=== PATIENT | male | born 1950 | race Caucasian/White ===

== ENCOUNTER 2018-08-28 00:22 | Outpatient (CLI) | payer MEDICARE, OTHER, SELFPAY ==
--- NOTE | 2018-08-28 11:24 | DI.CTLCSR_ITS ---
SYMPTOM/DIAGNOSIS: SCREENING FOR LUNG CA, Z12.2, TOBACCO USE, F17.[address]: CT scan of the chest was performed according to the lung cancer screening protocol. Comparison examination is 08/22/17. There is atherosclerosis of the thoracic aorta but no aneurysmal dilatation. Heart size is within normal limits. No significant pericardial effusion is seen. Coronary artery calcifications are present. No significant mediastinal adenopathy is present. No pleural effusion or pneumothorax is identified. The 2 mm. non calcified pulmonary nodule in the anterior lateral aspect of the right upper lobe appears stable. No other pulmonary nodules are appreciated. There is scarring seen in the lung bases. No focal consolidating infiltrates are seen. The tracheobronchial tree is unremarkable. Mild centrilobular emphysematous changes are present in the lungs. The upper abdominal images are unremarkable. Degenerative changes are seen in the spine. IMPRESSION: Stable 2 mm. right upper lobe pulmonary nodule. No new pulmonary nodules. Category 1. Lung-RAD Category: Lung RADS Category 1- Negative
== END 2018-08-28 00:42 ==
PROVIDERS: PCP Nurse Practitioner Family; Visit Provider Nurse Practitioner Family
DX: Z12.2 Encounter for screening for malignant neoplasm of respiratory organs (principal); Z87.891 Personal history of nicotine dependence
CPT/HCPCS: G0297

== ENCOUNTER → 2019-01-27 15:00 | Outpatient (BNVA) | payer MEDICARE, OTHER, SELFPAY | PROVIDERS: PCP Nurse Practitioner Family; Referring Provider Nurse Practitioner Family; Visit Provider Surgery | DX: L98.9 Disorder of the skin and subcutaneous tissue, unspecified (principal); I10 Essential (primary) hypertension | CPT/HCPCS: 99212; 99213 ==

== ENCOUNTER → 2019-02-20 09:04 | Outpatient (BNVA) | payer MEDICARE, OTHER, SELFPAY | PROVIDERS: PCP Nurse Practitioner Family; Referring Provider Nurse Practitioner Family; Visit Provider Surgery | DX: L82.1 Other seborrheic keratosis (principal); I10 Essential (primary) hypertension; Z79.82 Long term (current) use of aspirin; Z85.828 Personal history of other malignant neoplasm of skin | CPT/HCPCS: 11402; 99212 ==

== ENCOUNTER 2019-02-20 11:12 | Outpatient (REF) | payer MEDICARE, OTHER, SELFPAY ==
--- NOTE | 2019-02-20 10:00 | SKI_PTH ---
PATIENT: Ayden Corrigan LOC: [facility] U#:[id number] AGE/SX: 68/M ROOM: RE02/20/[address]: Jayne Cruz : 1950 BED: DIS: 02/20/2019 SPEC #: [id number] RECD: 02/20/19 12:35 STATUS: SLY REQ #: [id number] KRUNAL: 02/20/19 10:[address]: Jayne Cruz DEPT: Surgical Specimen RECD BY: Lashell Mota ENTERED: 02/20/19 12:36 SP TYPE: [facility] DR: Diane Mckenzie APRN Tissues: 1 - SKIN BIOPSY(SHAVE/PUNCH) Procedures: SKIN LEVEL 4 Comments: [id number]
== END 2019-02-20 11:32 ==
LOC: LBN 11:12
PROVIDERS: PCP Nurse Practitioner Family; Visit Provider Surgery
DX: L82.1 Other seborrheic keratosis (principal)
CPT/HCPCS: 88304; 88305

== ENCOUNTER → 2019-03-03 14:33 | Outpatient (BNVA) | payer MEDICARE, OTHER, SELFPAY | PROVIDERS: PCP Nurse Practitioner Family; Referring Provider Nurse Practitioner Family; Visit Provider Surgery | DX: Z48.02 Encounter for removal of sutures (principal); Z48.817 Encounter for surgical aftercare following surgery on the skin and subcutaneous tissue; L57.0 Actinic keratosis ==

== ENCOUNTER 2019-05-16 02:02 | Outpatient (CLI) | payer MEDICARE, OTHER, SELFPAY ==
[2019-05-16 08:29] LABS: Hemoglobin A1C 5.8 % (4.5-6.2)
[2019-05-16 08:56] LABS: ALT 46 U/L (12-78); AST 18 U/L (15-37); Albumin 3.8 g/dL (3.4-5.0); Alkaline Phosphatase 73 U/L (46-116); Anion Gap 10.6 mmol/L (3-11); BUN 20 mg/dL (7-18); Bilirubin, Total 0.4 mg/dL (0.2-1.0); CO2 23.4 mmol/L (21.0-32.0); CREATININE 1.24 mg/dL (0.70-1.30); Calcium 9.3 mg/dL (8.5-10.1); Calculated LDL 94 mg/dL; Chloride 107 mmol/L (98-107); Cholesterol 167 mg/dL (50-200); Estimated GFR 57.47 (mL/min/1.73m2); Glucose 99 mg/dL (70-100); HDL Cholesterol 59 mg/dL (40-60); Potassium 4.9 mmol/L (3.5-5.1); Sodium 141 mmol/L (136-145); Total Protein 7.4 g/dL (6.4-8.2); Triglyceride 72 mg/dL (30-150)
== END 2019-05-16 02:22 ==
PROVIDERS: PCP Nurse Practitioner Family; Visit Provider Nurse Practitioner Family
DX: I10 Essential (primary) hypertension (principal); E78.5 Hyperlipidemia, unspecified; R73.01 Impaired fasting glucose
CPT/HCPCS: 36415; 80053; 80061; 83721; 83036

== ENCOUNTER 2019-08-29 00:07 | Outpatient (CLI) | payer MEDICARE, OTHER, SELFPAY ==
--- NOTE | 2019-08-29 08:35 | DI.CTLCSR_ITS ---
EXAM: CT CHEST LUNG CANCER SCREEN CLINICAL HISTORY: NICOTINE DEPENDENCE, CIGARETTES, F17.210; SCREENING, Z12.2. TECHNIQUE: The exam was performed according to the usual protocol. COMPARISON: CT CHEST LUNG CANCER SCREEN from 08/28/2018 FINDINGS: The low-dose chest CT is compared with a prior study of 08/28/2018. Again noted is a 2 mm noncalcifie d pulmonary nodule in the anterior lateral aspect of the right upper lobe which is unchanged. No new nodules are identified. Again noted are the chronic pulmonary changes with evidence of scarring inv olving the lung bases. There is no evidence of airspace consolidation. Heart is not enlarged. There are atherosclerotic changes involving the aorta with no evidence of an aneurysm. Coronary artery ca lcification is again seen. As visualized there is no evidence of hilar or mediastinal adenopathy. N o pleural effusion is seen. There are mild degenerative changes involving the dorsal spine. IMPRESSION: A 2 mm right upper lobe nodule is unchanged. No new nodules are apparent. This is a category 1 lung rads study. Follow-up surveillance with annual low-dose chest CT is recommended. Lung RADS Cat 1 - Negative: No nodules and definitely benign nodules.
== END 2019-08-29 00:27 ==
PROVIDERS: PCP Nurse Practitioner Family; Visit Provider Nurse Practitioner Family
DX: Z12.2 Encounter for screening for malignant neoplasm of respiratory organs (principal); F17.210 Nicotine dependence, cigarettes, uncomplicated; R91.1 Solitary pulmonary nodule; J98.4 Other disorders of lung
CPT/HCPCS: G0297

== ENCOUNTER 2021-02-24 01:24 | Outpatient (CLI) | payer MEDICARE, OTHER, SELFPAY ==
--- NOTE | 2021-02-24 08:25 | DI.CTLCSR_ITS ---
EXAM: CT CHEST LUNG CANCER SCREEN CLINICAL HISTORY: Screening for lung cancer,FORMER SMOKER, Z87.891 TECHNIQUE: Imaging Protocol: Axial computed tomography images with coronal and sagittal reformatted images were created and reviewed COMPARISON: CT CT CHEST LUNG CANCER SCREEN from 08/29/2019 FINDINGS: Tracheobronchial tree: Patent where visualized. Mediastinum and Frida: No dominant adenopathy or fluid collection. Pulmonary parenchyma: No consolidation or dominant measurable mass. Stable left lower lobe scarring. Lung Nodules: Stable tumor millimeter noncalcified nodule in the infero anterior peripheral right upp er lobe. No new nodules. Pleura: No effusion or pneumothorax. Heart: The heart is not dilated. Mild coronary artery calcifications are seen. Aorta: Thoracic aorta non-dilated.Mild atherosclerotic changes. Upper abdomen: Unremarkable. Bones: Mild degenerative changes. Soft Tissues: Unremarkable. IMPRESSION: Stable 2 millimeter right upper lobe nodule. Lung RADS Cat 1 - Negative: No nodules and definitely benign nodules Lung-RADS 1.0 CATEGORIES: Category 0 - Prior chest CT exam(s) being located for comparison. Category 1 - Annual screening in 12 months. No nodules or definitely benign nodules. Category 2 - Annual screening in 12 months. Benign appearance. Nodules with low likelihood of becomin g active cancer. Category 3 - 6-month follow-up. Probably benign. Short-term follow-up suggested. Nodules with low lik elihood of becoming active cancer. Category 4A - 3-month follow-up and CT/PET if >8 mm in size. Suspicious finding. Findings which requi re additional testing. Category 4B - Findings which require additional testing and tissue sampling. Modifier S- Potentially clinically significant findings (non lung cancer) RADIATION DOSE DELIVERED: 102.07mGy.cm Total DLP 2.21mGy CTDIvol DATA REPOSITORY: All CT scans at this facility are submitted to the National Radiology Data Registry (NRDR) Dose Index Registry (DIR) with the [employer] (ACR). RADIATION OPTIMIZATION: All CT scans at this facility use at least one of these dose optimization te chniques: automated exposure control; mA and/or kV adjustment per patient size (includes targeted exa ms where dose is matched to clinical indication); or iterative reconstruction.
== END 2021-02-24 01:44 ==
PROVIDERS: PCP Nurse Practitioner Family; Visit Provider Nurse Practitioner Family
DX: Z12.2 Encounter for screening for malignant neoplasm of respiratory organs (principal); Z87.891 Personal history of nicotine dependence; R91.1 Solitary pulmonary nodule
CPT/HCPCS: 71271

== ENCOUNTER 2021-07-19 03:38 | Outpatient (CLI) | payer MEDICARE, OTHER, SELFPAY ==
[2021-07-19 08:36] LABS: ALT 30 U/L (16-63); AST 16 U/L (15-37); Alkaline Phosphatase 62 U/L (46-116); Anion Gap 12.6 mmol/L (3-11); BUN 15 mg/dL (7-18); Bilirubin, Total 0.6 mg/dL (0.2-1.0); CO2 23.4 mmol/L (21.0-32.0); CREATININE 1.2 mg/dL (0.70-1.30); Calcium 8.9 mg/dL (8.5-10.1); Calculated LDL 85 mg/dL (<100); Chloride 107 mmol/L (98-107); Cholesterol 169 mg/dL (<200); Estimated GFR 59.35 (mL/min/1.73m2); Glucose 99 mg/dL (74-106); HDL Cholesterol 65 mg/dL (40-60); Potassium 4.4 mmol/L (3.5-5.1); Sodium 143 mmol/L (136-145); Triglyceride 97 mg/dL (<150)
== END 2021-07-19 03:39 | disposition home or self-care (01) ==
LOC: LBO 03:38
PROVIDERS: PCP Nurse Practitioner Family; Visit Provider Nurse Practitioner Family
DX: E78.5 Hyperlipidemia, unspecified (principal); I10 Essential (primary) hypertension
CPT/HCPCS: 36415; 80053; 80061

== ENCOUNTER 2021-10-12 14:41 | Outpatient (REF) | payer MEDICARE, OTHER, SELFPAY | END 2021-10-12 14:42 | disposition home or self-care (01) | LOC: LBO 14:41 | PROVIDERS: PCP Nurse Practitioner Family; Visit Provider Internal Medicine | DX: L02.232 Carbuncle of back [any part, except buttock and flank] (principal) | CPT/HCPCS: 87077; 87070; 87186; 87205 ==

== ENCOUNTER → 2021-10-27 12:48 | Outpatient (BNVA) | payer MEDICARE, OTHER, SELFPAY | PROVIDERS: PCP Nurse Practitioner Family; Referring Provider Nurse Practitioner Family; Visit Provider Physical Therapy Assistant | DX: L72.3 Sebaceous cyst (principal); I10 Essential (primary) hypertension | CPT/HCPCS: 10060; 10061; 99214 ==

== ENCOUNTER → 2021-11-07 09:07 | Outpatient (BNVA) | payer MEDICARE, OTHER, SELFPAY | PROVIDERS: PCP Nurse Practitioner Family; Referring Provider Nurse Practitioner Family; Visit Provider Physical Therapy Assistant | DX: Z48.817 Encounter for surgical aftercare following surgery on the skin and subcutaneous tissue (principal) ==

== ENCOUNTER → 2021-12-19 09:03 | Outpatient (BNVA) | payer MEDICARE, OTHER, SELFPAY | PROVIDERS: PCP Nurse Practitioner Family; Referring Provider Nurse Practitioner Family; Visit Provider Physical Therapy Assistant | DX: L72.3 Sebaceous cyst (principal); I10 Essential (primary) hypertension | CPT/HCPCS: 11401; 11402 ==

== ENCOUNTER → 2021-12-29 11:35 | Outpatient (BNVA) | payer MEDICARE, OTHER, SELFPAY | PROVIDERS: PCP Nurse Practitioner Family; Referring Provider Nurse Practitioner Family; Visit Provider Physical Therapy Assistant | DX: Z48.817 Encounter for surgical aftercare following surgery on the skin and subcutaneous tissue (principal) ==

== ENCOUNTER → 2022-01-05 07:52 | Outpatient (BNVA) | payer MEDICARE, OTHER, SELFPAY | PROVIDERS: PCP Nurse Practitioner Family; Referring Provider Nurse Practitioner Family; Visit Provider Physical Therapy Assistant | DX: Z48.817 Encounter for surgical aftercare following surgery on the skin and subcutaneous tissue (principal); L53.8 Other specified erythematous conditions | CPT/HCPCS: 99213 ==

== ENCOUNTER → 2022-01-12 10:05 | Outpatient (BNVA) | payer MEDICARE, OTHER, SELFPAY | PROVIDERS: PCP Nurse Practitioner Family; Referring Provider Nurse Practitioner Family; Visit Provider Surgery | DX: L72.3 Sebaceous cyst (principal); Z48.817 Encounter for surgical aftercare following surgery on the skin and subcutaneous tissue | CPT/HCPCS: 99212 ==

== ENCOUNTER → 2022-02-02 10:04 | Outpatient (BNVA) | payer MEDICARE, OTHER, SELFPAY | PROVIDERS: PCP Nurse Practitioner Family; Referring Provider Nurse Practitioner Family; Visit Provider Surgery | DX: L72.3 Sebaceous cyst (principal) | CPT/HCPCS: 99211 ==

== ENCOUNTER 2022-02-27 01:30 | Outpatient (CLI) | payer MEDICARE, OTHER, SELFPAY ==
--- NOTE | 2022-02-27 08:08 | DI.CTLCSR_ITS ---
Exam(s) CT CHEST LUNG CANCER SCREEN EXAM: CT CHEST LUNG CANCER SCREEN CLINICAL HISTORY: Screening for lung cancer,FORMER SMOKER, Z87.891 TECHNIQUE: Imaging Protocol: Axial computed tomography images with coronal and sagittal reformatted images were created and reviewed COMPARISON: CT CT CHEST LUNG CANCER SCREEN from 02/24/2021 FINDINGS: Tracheobronchial tree: Patent where visualized. Mediastinum and Frida: No dominant adenopathy or fluid collection. Pulmonary parenchyma: No consolidation or dominant measurable mass. Mild linear atelectasis or scarr ing at the lung bases. Lung Nodules: A stable 2 millimeter nodule anterior, peripheral right upper lobe. No new nodules. Pleura: No effusion or pneumothorax. Heart: The heart is not dilated. Mild coronary artery calcifications are seen. Aorta: Thoracic aorta non-dilated. Mild atherosclerotic changes Upper abdomen: Unremarkable. Bones: Unremarkable for age. Soft Tissues: Unremarkable. IMPRESSION: Lung RADS Cat 1 - Negative: No nodules and definitely benign nodules Lung-RADS 1.0 CATEGORIES: Category 0 - Prior chest CT exam(s) being located for comparison. Category 1 - Annual screening in 12 months. No nodules or definitely benign nodules. Category 2 - Annual screening in 12 months. Benign appearance. Nodules with low likelihood of becomin g active cancer. Category 3 - 6-month follow-up. Probably benign. Short-term follow-up suggested. Nodules with low lik elihood of becoming active cancer. Category 4A - 3-month follow-up and CT/PET if >8 mm in size. Suspicious finding. Findings which requi re additional testing. Category 4B - Findings which require additional testing and tissue sampling. Category 4X - Category 3 or 4 nodules with additional features or imaging findings that increases the suspicion of malignancy. Modifier S- Potentially clinically significant findings (non lung cancer) RADIATION DOSE DELIVERED: 102.98mGy.cm Total DLP 2.21mGy CTDIvol DATA REPOSITORY: All CT scans at this facility are submitted to the National Radiology Data Registry (NRDR) Dose Index Registry (DIR) with the [employer] (ACR). RADIATION OPTIMIZATION: All CT scans at this facility use at least one of these dose optimization te chniques: automated exposure control; mA and/or kV adjustment per patient size (includes targeted exa ms where dose is matched to clinical indication); or iterative reconstruction.
== END 2022-02-27 01:50 ==
PROVIDERS: PCP Nurse Practitioner Family; Visit Provider Nurse Practitioner Family
DX: Z12.2 Encounter for screening for malignant neoplasm of respiratory organs (principal); J98.4 Other disorders of lung; Z87.891 Personal history of nicotine dependence; R91.1 Solitary pulmonary nodule
CPT/HCPCS: 71271

== ENCOUNTER 2022-05-05 01:43 | Outpatient (CLI) | payer MEDICARE, OTHER, SELFPAY ==
[2022-05-05 09:27] LABS: TSH (W/Ref FT4) 2.01 uIU/mL (0.36-3.74); Vitamin B12 737 pg/mL (193-986)
== END 2022-05-05 01:44 | disposition home or self-care (01) ==
PROVIDERS: PCP Nurse Practitioner Family; Visit Provider Nurse Practitioner
DX: R68.89 Other general symptoms and signs; I10 Essential (primary) hypertension
CPT/HCPCS: 36415; 82607; 84443

== ENCOUNTER 2022-07-19 02:53 | Outpatient (CLI) | payer MEDICARE, OTHER, SELFPAY ==
[2022-07-19 09:28] LABS: Anion Gap 10.5 mmol/L (3-11); BUN 22 mg/dL (7-18); CO2 23.5 mmol/L (21.0-32.0); CREATININE 1.3 mg/dL (0.70-1.30); Calcium 8.8 mg/dL (8.5-10.1); Calculated LDL 86 mg/dL (<100); Chloride 108 mmol/L (98-107); Cholesterol 170 mg/dL (<200); Estimated GFR 57.65 (mL/min/1.73m2); Glucose 97 mg/dL (74-106); HDL Cholesterol 70 mg/dL (40-60); Potassium 4.2 mmol/L (3.5-5.1); Sodium 142 mmol/L (136-145); Triglyceride 70 mg/dL (<150)
== END 2022-07-19 02:54 | disposition home or self-care (01) ==
LOC: LBO 02:53
PROVIDERS: PCP Nurse Practitioner Family; Visit Provider Nurse Practitioner Family
DX: E78.5 Hyperlipidemia, unspecified (principal); I10 Essential (primary) hypertension
CPT/HCPCS: 36415; 80048; 80061

== ENCOUNTER 2023-03-22 01:15 | Outpatient (CLI) | payer MEDICARE, OTHER, SELFPAY ==
--- NOTE | 2023-03-22 07:24 | DI.CTLCSR_ITS ---
Exam(s) CT CHEST LUNG CANCER SCREEN EXAM: CT CHEST LUNG CANCER SCREEN CLINICAL HISTORY: Screening for lung cancer,FORMER SMOKER, Z87.891 TECHNIQUE: Imaging Protocol: Axial computed tomography images with coronal and sagittal reformatted images were created and reviewed COMPARISON: CT CT CHEST LUNG CANCER SCREEN from 02/27/2022 FINDINGS: Tracheobronchial tree: Patent where visualized. Pulmonary parenchyma: No consolidation or dominant measurable mass. There is linear atelectasis or sc arring in the lung bases. Lung Nodules: No new pulmonary nodules. There is a stable 2 mm nodule in the anterior aspect of the right upper lobe. Mediastinum and Frida: No dominant adenopathy or fluid collection. The esophagus is unremarkable. Thyroid gland: Unremarkable. Lymph nodes: Unremarkable. Pleura: No effusion or pneumothorax. Heart: The heart is not dilated. Mild coronary artery calcification. No pericardial effusion. Aorta: Thoracic aorta non-dilated.Atherosclerosis. Upper abdomen: Unremarkable. Soft Tissues: Unremarkable. Bones: Within normal limits. IMPRESSION: There is a stable 2 mm nodule. No new pulmonary nodules. Lung RADS Cat 2 - Benign Appearance / Behavior: Nodules with a very low likelihood of becoming a clin ically active cancer due to size or lack of growth Lung-RADS 1.0 CATEGORIES: Category 0 - Prior chest CT exam(s) being located for comparison. Category 1 - Annual screening in 12 months. No nodules or definitely benign nodules. Category 2 - Annual screening in 12 months. Benign appearance. Nodules with low likelihood of becomin g active cancer. Category 3 - 6-month follow-up. Probably benign. Short-term follow-up suggested. Nodules with low lik elihood of becoming active cancer. Category 4A - 3-month follow-up and CT/PET if >8 mm in size. Suspicious finding. Findings which requi re additional testing. Category 4B - Findings which require additional testing and tissue sampling. Suspicious finding. Category 4X - Category 3 or 4 nodules with additional features or imaging findings that increases the suspicion of malignancy. Modifier S- Potentially clinically significant finding. (Non lung cancer) RADIATION DOSE DELIVERED: 100.33mGy.cm Total DLP 100.33mGy.cmTotal DLP DATA REPOSITORY: All CT scans at this facility are submitted to the National Radiology Data Registry (NRDR) Dose Index Registry (DIR) with the [employer] (ACR). RADIATION OPTIMIZATION: All CT scans at this facility use at least one of these dose optimization te chniques: automated exposure control; mA and/or kV adjustment per patient size (includes targeted exa ms where dose is matched to clinical indication); or iterative reconstruction.
== END 2023-03-22 01:35 ==
LOC: DI 01:16
PROVIDERS: PCP Nurse Practitioner Family; Visit Provider Nurse Practitioner Family
DX: Z12.2 Encounter for screening for malignant neoplasm of respiratory organs (principal); Z87.891 Personal history of nicotine dependence
CPT/HCPCS: 36415; 71271; 80053; 80061; 85652; 83036; 84550; 85025; 86140

== ENCOUNTER 2023-03-22 12:42 | Outpatient (CLI) | payer MEDICARE, OTHER, SELFPAY ==
[2023-03-22 09:49] LABS: Abs Immature Grans 0.03 10^3/uL (0.0-0.06); Absolute Basophil Count 0.06 10^3/uL (0.0-0.2); Absolute Lymphocyte Count 1.74 10^3/uL (1.2-3.4); Absolute Monocyte Count 0.82 10^3/uL (0.1-0.8); Absolute Neutrophil Count 5.74 10^3/uL (1.2-6.7); Basophils % 0.7; Eosinophils % 3.5; HCT 49.1 % (40.0-50.0); HGB 16.7 g/dL (13.5-17.5); Immature Grans % 0.3; MCH 32.7 pg (27.0-33.0); MCV 96 fL (80-95); MPV 10.3 fL (8.0-11.0); Monocytes % 9.4; Neutrophils % 66.1; Platelet Count 239 10^3/uL (130-400); RBC 5.11 10^6/uL (4.36-5.78); RDW 12.9 % (11.8-14.1); RDW-SD 46.4 fL; WBC 8.69 10^3/uL (4.4-10.8)
[2023-03-22 09:54] LABS: ESR 11 mm/hr (0-20)
[2023-03-22 10:24] LABS: ALT 34 U/L (16-63); AST 17 U/L (15-37); Albumin 4.1 g/dL (3.4-5.0); Alkaline Phosphatase 83 U/L (46-116); Anion Gap 12.1 mmol/L (3-11); BUN 22 mg/dL (7-18); Bilirubin, Total 0.6 mg/dL (0.2-1.0); CO2 20.9 mmol/L (21.0-32.0); CREATININE 1.5 mg/dL (0.70-1.30); Calcium 9.2 mg/dL (8.5-10.1); Chloride 107 mmol/L (98-107); Estimated GFR 48.55 (mL/min/1.73m2); Glucose 108 mg/dL (74-106); Potassium 4.3 mmol/L (3.5-5.1); Sodium 140 mmol/L (136-145); Total Protein 7.9 g/dL (6.4-8.2); Uric Acid 7.7 mg/dL (3.5-7.2)
[2023-03-22 10:29] LABS: C-Reactive Protein < 0.05 mg/dL (0.0-0.3)
[2023-03-22 10:40] LABS: Calculated LDL 77 mg/dL (<100); Cholesterol 199 mg/dL (<200); HDL Cholesterol 77 mg/dL (40-60); Hemoglobin A1C 5.1 % (<5.7); Triglyceride 225 mg/dL (<150)
== END 2023-03-22 12:43 | disposition home or self-care (01) ==
LOC: LBO 12:42
PROVIDERS: PCP Nurse Practitioner Family; Visit Provider Nurse Practitioner Family
DX: N18.31 Chronic kidney disease, stage 3a; I10 Essential (primary) hypertension; R73.01 Impaired fasting glucose; M10.471 Other secondary gout, right ankle and foot; E78.41 Elevated Lipoprotein(a)
CPT/HCPCS: 36415; 80053; 80061; 85652; 83036; 84550; 85025; 86140

== ENCOUNTER → 2023-04-10 08:25 | Outpatient (BNVA) | payer MEDICARE, OTHER, SELFPAY | PROVIDERS: PCP Nurse Practitioner Family; Referring Provider Nurse Practitioner Family; Visit Provider Surgery | DX: L72.3 Sebaceous cyst (principal) | CPT/HCPCS: 11403; 99213 ==

== ENCOUNTER → 2023-04-19 15:02 | Outpatient (BNVA) | payer MEDICARE, OTHER, SELFPAY | PROVIDERS: PCP Nurse Practitioner Family; Referring Provider Nurse Practitioner Family; Visit Provider Physical Therapy Assistant | DX: Z48.817 Encounter for surgical aftercare following surgery on the skin and subcutaneous tissue (principal); L72.9 Follicular cyst of the skin and subcutaneous tissue, unspecified ==

== ENCOUNTER 2023-04-26 02:25 | Outpatient (CLI) | payer MEDICARE, OTHER, SELFPAY ==
--- NOTE | 2023-04-26 07:15 | DI.RAD_ITS ---
Exam(s) XR FOOT RT COMPLETE EXAM: XR FOOT RT COMPLETE CLINICAL HISTORY: Persist 2nd toe pain/swell/red ?gout vs. stress fx,m79.674,m79.89. TECHNIQUE: 2D digital imaging was performed of the right foot. Three images were obtained. AP, obl ique and lateral views were obtained. COMPARISON: No exams were available for comparison FINDINGS: BONES: No acute fracture is present. No bony destructive lesion is seen. The bones are normally mineral surveying technician alized. JOINTS: No dislocation present. No findings are present to suggest osteomyelitis or gout. There is n arrowing of the 2nd MTP joint. Mild hypertrophic changes are seen at the interphalangeal joints of t he 2nd toe. SOFT TISSUE: Normal. IMPRESSION: 1. No radiographic evidence to suggest gout, osteomyelitis. 2. No acute fracture or dislocation. 3. Degenerative changes of the foot. DATA REPOSITORY: RADIATION DOSE DELIVERED:
== END 2023-04-26 02:45 ==
LOC: DI 02:25
PROVIDERS: PCP Nurse Practitioner Family; Visit Provider Nurse Practitioner Family
DX: M79.674 Pain in right toe(s) (principal); M19.071 Primary osteoarthritis, right ankle and foot
CPT/HCPCS: 73630

== ENCOUNTER 2023-07-13 00:59 | Outpatient (CLI) | payer MEDICARE, OTHER, SELFPAY ==
[2023-07-13 07:27] LABS: Anion Gap 12.9 mmol/L (3-11); BUN 22 mg/dL (7-18); CO2 23.1 mmol/L (21.0-32.0); CREATININE 1.4 mg/dL (0.70-1.30); Calcium 9.3 mg/dL (8.5-10.1); Chloride 104 mmol/L (98-107); Estimated GFR 52.41 (mL/min/1.73m2); Glucose 96 mg/dL (74-106); Potassium 3.9 mmol/L (3.5-5.1); Sodium 140 mmol/L (136-145)
== END 2023-07-13 01:00 | disposition home or self-care (01) ==
LOC: LBO 01:00
PROVIDERS: PCP Nurse Practitioner Family; Visit Provider Nurse Practitioner Family
DX: N18.9 Chronic kidney disease, unspecified (principal); I10 Essential (primary) hypertension; E78.5 Hyperlipidemia, unspecified
CPT/HCPCS: 36415; 80048

== ENCOUNTER 2023-08-06 04:27 | Outpatient (CLI) | payer MEDICARE, OTHER, SELFPAY ==
[2023-08-06 07:36] LABS: Anion Gap 9.2 mmol/L (3-11); BUN 15 mg/dL (7-18); CO2 25.8 mmol/L (21.0-32.0); CREATININE 1.5 mg/dL (0.70-1.30); Calcium 9.6 mg/dL (8.5-10.1); Chloride 104 mmol/L (98-107); Estimated GFR 48.25 (mL/min/1.73m2); Glucose 88 mg/dL (74-106); Potassium 4.1 mmol/L (3.5-5.1); Sodium 139 mmol/L (136-145)
== END 2023-08-06 04:28 | disposition home or self-care (01) ==
LOC: LBO 04:27
PROVIDERS: Student in an Organized Health Care Education/Training Program; Absent Provider Nurse Practitioner Family; PCP Nurse Practitioner Family; Referring Provider Nurse Practitioner Family; Visit Provider Nurse Practitioner Family
DX: N18.9 Chronic kidney disease, unspecified (principal); E78.5 Hyperlipidemia, unspecified; R73.01 Impaired fasting glucose; I10 Essential (primary) hypertension
CPT/HCPCS: 36415; 80048; 83735

== ENCOUNTER → 2023-08-21 00:53 | Outpatient (CLI) | payer MEDICARE, OTHER, SELFPAY ==
--- NOTE | 2023-08-21 06:30 | DI.US_ITS ---
Exam(s) US RENAL EXAM: US RENAL CLINICAL HISTORY: ? stones or other path,chronic kidney disease,n18.9. TECHNIQUE: Carlson scale, color and spectral Doppler were used. COMPARISON: No exams were available for comparison FINDINGS: Renal size in cm: Right: 10.4 left: 10.6 Echogenicity: Normal Hydronephrosis: No Cyst or mass: 2.1 centimeter cyst upper pole right kidney. 1.3 centimeter cyst lower pole left kidne y. No follow-up recommended. Nephrolithiasis: No Bladder: Empty not well evaluated. IMPRESSION: No evidence of stones or hydronephrosis. Normal renal echogenicity and parenchymal thickness. DATA REPOSITORY:
== END ==
PROVIDERS: PCP Nurse Practitioner Family; Visit Provider Nurse Practitioner Family
DX: N18.9 Chronic kidney disease, unspecified (principal)
CPT/HCPCS: 76770

== ENCOUNTER 2023-08-22 03:19 | Outpatient (CLI) | payer MEDICARE, OTHER, SELFPAY ==
[2023-08-22 08:07] LABS: Anion Gap 7.6 mmol/L (3-11); BUN 22 mg/dL (7-18); CO2 24.4 mmol/L (21.0-32.0); CREATININE 1.3 mg/dL (0.70-1.30); Calcium 9.3 mg/dL (8.5-10.1); Chloride 108 mmol/L (98-107); Estimated GFR 57.29 (mL/min/1.73m2); Glucose 107 mg/dL (74-106); Potassium 4.5 mmol/L (3.5-5.1); Sodium 140 mmol/L (136-145)
[2023-08-22 08:29] LABS: Bilirubin Negative (Negative); Blood Negative (Negative); Clarity Clear (Clear); Glucose Negative (Negative); Ketones Negative (Negative); Leukocyte Esterase Small (Negative); Nitrite Negative (Negative); Specific Gravity 1.025 (1.005-1.025); Urobilinogen 0.2 mg/dL (Up to 0.2)
[2023-08-22 08:36] LABS: Bacteria Rare HPF (Negative); C & S Indicated? Yes; Casts Negative LPF (Negative); Crystals Negative HPF (Negative); Epithelial Cells Rare HPF (Negative); Mucus Negative (Negative); RBC 0-2 HPF (0-2)
== END 2023-08-22 03:20 | disposition home or self-care (01) ==
LOC: LBO 03:19
PROVIDERS: Absent Provider Nurse Practitioner Family; PCP Nurse Practitioner Family; Referring Provider Nurse Practitioner Family; Visit Provider Nurse Practitioner Family
DX: N18.9 Chronic kidney disease, unspecified (principal); M79.674 Pain in right toe(s); M79.89 Other specified soft tissue disorders
CPT/HCPCS: 36415; 80048; 81003; 81015; 87086

== ENCOUNTER 2024-06-05 10:27 | Outpatient (CLI) | payer MEDICARE, OTHER, SELFPAY ==
--- NOTE | 2024-06-05 10:15 | RT.EKG_ITS ---
APPROVED REPORT Exam: Resting ECG Reason for Exam: Irregular HR w/ sob on exersion Patient Location: O HR:80 bpm ECG Measurements Heart Rate 80 AXIS IN 122 P 50 QRSd 110 QRS -61 QT 378 T 62 QTc 436 Conclusion Sinus rhythm...normal P axis, V-rate 50- 99 Atrial premature beats Left anterior fascicular block...axis(240,-40), init forces inf
== END 2024-06-05 10:28 | disposition home or self-care (01) ==
LOC: DI.KIM 10:28
PROVIDERS: PCP Family Medicine; Visit Provider Student in an Organized Health Care Education/Training Program
DX: I49.9 Cardiac arrhythmia, unspecified (principal); I10 Essential (primary) hypertension; N18.31 Chronic kidney disease, stage 3a; M79.671 Pain in right foot
CPT/HCPCS: 93010

== ENCOUNTER → 2024-06-05 13:15 | Outpatient (CLI) | payer MEDICARE, OTHER, SELFPAY ==
--- NOTE | 2024-06-05 11:39 | DI.RAD_ITS ---
Exam(s) XR FOOT RT COMPLETE EXAM: XR FOOT RT COMPLETE CLINICAL HISTORY: focal pain just distal to rt ankle joint, M79.671,r/o bony path, outer foot. TECHNIQUE: 2D digital imaging was performed. COMPARISON: CR XR FOOT RT COMPLETE from 04/26/2023 FINDINGS: 3 views No evidence of acute fracture or diastasis of the Lisfranc joint. Some degenerative changes are note d at the 2nd metatarsophalangeal joint; less so at the 1st metatarsophalangeal joint. Tarsometatarsa l joints appear unremarkable. Bone density normal. No osseous lesions. No radiopaque foreign desi s. Small sesamoid bones noted subjacent to the 5th metatarsal head. IMPRESSION: No acute osseous findings in the foot. Other findings as above. DATA REPOSITORY: RADIATION DOSE DELIVERED:
--- NOTE | 2024-06-05 11:40 | DI.RAD_ITS ---
Exam(s) XR ANKLE RT COMPLETE EXAM: XR ANKLE RT COMPLETE CLINICAL HISTORY: focal pain just distal to rt ankle joint, M79.671,r/o bony path, outer foot. TECHNIQUE: 2D digital imaging was performed. COMPARISON: No exams were available for comparison FINDINGS: 3 views No evidence of fracture or widening the ankle mortise. Talar dome unremarkable. No osseous lesions. No tarsal coalition. IMPRESSION: No acute osseous findings. DATA REPOSITORY: RADIATION DOSE DELIVERED:
== END ==
PROVIDERS: PCP Family Medicine; Visit Provider Student in an Organized Health Care Education/Training Program
DX: M79.671 Pain in right foot (principal); M25.571 Pain in right ankle and joints of right foot; M19.071 Primary osteoarthritis, right ankle and foot
CPT/HCPCS: 36415; 80048; 73610; 73630; 85018

== ENCOUNTER 2024-06-05 13:17 | Outpatient (CLI) | payer MEDICARE, OTHER, SELFPAY ==
[2024-06-05 12:13] LABS: Anion Gap 10.5 mmol/L (3-11); BUN 16 mg/dL (7-18); CO2 22.5 mmol/L (21.0-32.0); CREATININE 1.3 mg/dL (0.70-1.30); Calcium 9.3 mg/dL (8.5-10.1); Chloride 107 mmol/L (98-107); Estimated GFR 56.93 (mL/min/1.73m2); Glucose 102 mg/dL (74-106); Potassium 4.4 mmol/L (3.5-5.1); Sodium 140 mmol/L (136-145)
== END 2024-06-05 13:18 | disposition home or self-care (01) ==
LOC: LBO 13:17
PROVIDERS: PCP Family Medicine; Visit Provider Student in an Organized Health Care Education/Training Program
DX: N18.9 Chronic kidney disease, unspecified (principal); Z91.89 Other specified personal risk factors, not elsewhere classified; I10 Essential (primary) hypertension; M79.671 Pain in right foot
CPT/HCPCS: 36415; 80048; 85018

== ENCOUNTER 2024-08-01 08:43 | Outpatient (CLI) | payer MEDICARE, OTHER, SELFPAY ==
[2024-08-01 07:50] LABS: ALT 29 U/L (16-63); AST 26 U/L (15-37); Creatine Kinase 159 U/L (39-308)
[2024-08-01 07:51] LABS: Calculated LDL 70 mg/dL (<100); Cholesterol 161 mg/dL (<200); HDL Cholesterol 79 mg/dL (40-60); Triglyceride 63 mg/dL (<150)
== END 2024-08-01 08:44 | disposition home or self-care (01) ==
LOC: LBO 08:44
PROVIDERS: PCP Nurse Practitioner Family; Visit Provider Nurse Practitioner Family
DX: E78.5 Hyperlipidemia, unspecified (principal)
CPT/HCPCS: 36415; 80061; 82550; 84450; 84460

== ENCOUNTER 2024-10-27 02:26 | Outpatient (CLI) | payer MEDICARE, OTHER, SELFPAY ==
[2024-10-27 08:13] LABS: Anion Gap 7.5 mmol/L (3-11); BUN 16 mg/dL (7-18); CO2 27.5 mmol/L (21.0-32.0); CREATININE 1.4 mg/dL (0.70-1.30); Calcium 9.4 mg/dL (8.5-10.1); Chloride 108 mmol/L (98-107); Estimated GFR 52.09 (mL/min/1.73m2); Glucose 98 mg/dL (74-106); Potassium 4.6 mmol/L (3.5-5.1); Sodium 143 mmol/L (136-145)
== END 2024-10-27 02:27 | disposition home or self-care (01) ==
LOC: LBO 02:26
PROVIDERS: PCP Nurse Practitioner Family; Visit Provider Nurse Practitioner Family
DX: Z87.448 Personal history of other diseases of urinary system (principal)
CPT/HCPCS: 36415; 80048

== ENCOUNTER 2024-11-13 00:11 | Outpatient (CLI) | payer MEDICARE, OTHER, SELFPAY ==
--- OUTSIDE RECORDS SUMMARY | 2024-11-13 00:13 | XMS_ITS | Encounter Summary ---
Author Organization [facility] Address [address] [facility] [address] [place] [address] Care Team Providers Care Case Reviewer Name Role Phone Diane Mckenzie APRN Primary Care Provider Encounter Details Date Type Department Care Team (Late st Contact Info) Description 12/08/2016 Telephone Dermatology at [facility] [address] [place] [address] Louis Posada MD Social History Tobacco Use Types Packs/Day Years Used Date Smoking Tobacco: Never Assessed Sex and Gender Information Value Date Recorded Sex Assigned at Not on file Gender Identity Not on file Sexual Orientation Not on file documented as of this encounter Miscellaneous Notes * Telephone Encounter - Mira Bartlett LPN - 12/08/2016 9:11 AM EST Spoke with patient about his biopsy results indicating a BCC on his forehead. Reviewed treatment options to include ED&C, excision or MOHS. He does not want to have MOHS and requests that we do an excision at this facility. He will be scheduled with Dr. Posada for the procedure. He is aware that it may require more than one excision, he verbalized understanding. Scheduling oil developer to call him and schedule appointment. documented in this encounter Plan of Treatment Not on file documented as of this encounter Visit Diagnoses Not on filedocumented in this encounter Care Teams Case Reviewer Relationship Specialty Start Date End Date Diane Mckenzie APRN PCP - General Family Medicine 12/06/16 documented as of this encounter
--- OUTSIDE RECORDS SUMMARY | 2024-11-13 00:13 | XMS_ITS | Encounter Summary ---
Author Organization [facility] Address [address] [place] [address] Care Team Providers Care Prototype Model Maker Name Role Phone Unknown, Provider Primary Care Provider Unava ilable Encounter Details Date Type Department Care Team (Late st Contact Info) Description 02/20/2019 Results Only [facility] [phone] Cristobal Aranda, DO [address] [place], [place] [id number] Social History Tobacco Use Types Packs/Day Years Used Date Smoking Tobacco: Never Assessed Sex and Gender Information Value Date Recorded Sex Assigned at Not on file Legal Sex Male 18:16 EDT Gender Identity Not on file Sexual Orientation Not on file documented as of this encounter Plan of Treatment Not on file documented as of this encounter Procedures Procedure Name Priority Date/Time Associated Diagnosis Comments SURGICAL PATHOLOGY Routine 02/20/2019 18 :20 EDT documented in this encounter Results * SURGICAL PATHOLOGY (02/20/2019 18:20 EDT) Pathology Report: SURGICAL PATHOLOGY REPORT Reports generated via electronic interface contain original data; however they are lacking the format of the original report. Caution should be taken when reading/interpret ing unformatted reports. Name: ? AYDEN CORRIGAN ? Accession #: ? [id number] ? : ? 1950 (Age: 68) ??M ? Collect Date: ? 02/20/2019 ? Location: ? [facility] ? Receive Date: ? 02/20/2019 ? Provider: CRISTOBAL ARANDA DO Copy to: [facility] ? Final Pathologic Diagnosis: SKIN OF FLANK, RIGHT, EXCISION: - Seborrheic keratosis. Document reviewed and electronically signed by: CRISTOBAL BURGESS MD Report ??Date: 02/24/2019 11:43 By the signature above, the attending physician certifies that he/she has personally conducted a gross and/or microscopic examination of the described specimens and rendered or confirmed the above diagnosis. Specimen(s) Received: 1.0 cm soft tissue lesion R flank Clinical History: Soft tissue lesion right flank with history of skin cancer; fax results to [phone] Gross Description: Received in formalin labelled with proper patient identification (initials V, G) and 1 cm soft tissue lesion, right flank is an unoriented elliptical excision of pale james-white skin (1.6 x 0.9 cm and is excised to a depth of 0.3 cm). There is a gutierrez-brown slightly lobular nodule that measures 0.9 x 0.8 cm x 0.2 cm in thickness. The margins are inked blue. The specimen is submitted entirely with the four central sections in 1 and 2 and the two tips in 3, reverse en face. THANIA Andrade (ASCP) 02/21/2019 7:54 AM End of Report [facility] 02/20/2019 18:2 0 EDT 02/20/2019 18:20 EDT us Cristobal Aranda DO PATHOLOGY ORDERABLES Final Re sult [facility] [address] [place] [address] documented in this encounter Visit Diagnoses Not on filedocumented in this encounter Care Teams Prototype Model Maker Relationship Specialty Start Date End Date Unknown, Provider, PCP - General 02/20/19 02/25/19 documented as of this encounter
--- OUTSIDE RECORDS SUMMARY | 2024-11-13 00:13 | XMS_ITS | Referral Summary ---
Author Organization [facility] Address [address] [place] [address] Care Team Providers Care Labor Custodian Name Role Phone Diane Mckenzie NP Primary Care Provider [phone] Social History Tobacco Use Types Packs/Day Years Used Date Smoking Tobacco: Never Assessed Interpersonal Safety Answer Date Record ed Physically Hurt Never 06/21/2020 Verbally Threaten Not on file 06/21/2020 Sex and Gender Information Value Date Recorded Sex Assigned at Not on file Legal Sex Male 18:16 EDT Gender Identity Not on file Sexual Orientation Not on file Plan of Treatment Not on file Care Teams Labor Custodian Relationship Specialty Start Date End Date Diane Mckenzie NP PCP - General 02/26/19
--- OUTSIDE RECORDS SUMMARY | 2024-11-13 00:13 | XMS_ITS | Encounter Summary ---
Author Organization [facility] Address [facility] [place] [address] Care Team Providers Care Filter Tank Tender Helper Head Name Role Phone Diane Mckenzie APRN Primary Care Provider [phone] Encounter Details Date Type Department Care Team (Late st Contact Info) Description 08/23/2021 8:30 AM EDT Office Visit Dermatology at [facility] [address] [place] [address] Alex Priest MD [facility] [address] [address] Neoplasm of uncertain behavior; AK (actinic keratosis); EIC (epidermal inclusion cyst); Dermatitis; Lichen simplex chronicus Social History Tobacco Use Types Packs/Day Years Used Date Smoking Tobacco: Never Assessed Sex and Gender Information Value Date Recorded Sex Assigned at Not on file Gender Identity Not on file Sexual Orientation Not on file documented as of this encounter Patient Instructions * Patient Instructions* Michelle Tobin - 08/23/2021 8:30 AM EDT Options for Anti-perspriant/deodorant: Vanicream Anti-perspirant/deodorant Almay Sensitive Skin fragrance free gel anti-perspirant/deodorant Certain Dri Prescription Strength Clinical Antiperspirant or Certain Dri Extra Strength. Apply thisto dry arm pits every 3 days at night If irritation with aluminum containing products consider: Vanicream Deodorant Crystal Mineral Deodorant Stick Gentle soap options: Vanicream Free & Clear brand or CeraVe brand moisturizers and soaps documented in this encounter Progress Notes * Alex Priest MD - 08/23/2021 8:30 AM EDT Images from the original note were not included. DEPARTMENT OF DERMATOLOGY Medical Dermatology Clinic Provider: Alex Priest MD Patient's preferred name Ayden Preferred contact method for results []?myDH []?Letter [x]?Phone: cell phone () DPOA on FILE Detailed phone message OK? yes Are there any other people with whom we may discuss your care? Alisa, ?? PAST MEDICAL HISTORY If no, type N. If yes, type date, location, treatment Melanoma no Dysplastic nevi no SCC no BCC 12/06/2016: BCC, nodular tyle, right medial forehead 07/14/2021: BCC nasal bridge, scheduled for Mohs 09/08/21 AKs no UV Exposure & Protection Does not wear sunscreen, does not stay in the sun Grew up in [place], worked outside Other relevant past medical history (i.e. eczema, psoriasis, birthmarks, immunosuppression) ?? FAMILY HISTORY If yes, details Melanoma no NMSC no Other relevant family history no SOCIAL HISTORY Occupation: Hobbies: Other: ?? PRE-PROCEDURE SCREENING If no, type N. If yes, include details below Allergy to lidocaine, epinephrine, Dermabond, chlorhexidine, or adhesives: no Bleeding disorder or blood thinners: no Pacemaker, defibrillator, deep brain stimulator, cochlear implant: no History of Present Illness: Ayden Corrigan is a 71 y.o. Patient returns to clinic today for a full skin exam, He has not noted any other new, growing, changing, bleeding, painful or otherwise symptomatic moles or other lesions. He has not noted any other changes in any preexisting lesions. Last visit at [facility] Derm: 07/14/2021 Last visit with this provider: 07/14/2021 Medications: Reviewed in eD-H Allergies: Reviewed in eD-H Skin Examination: Full skin examination: Patient asked to undress to their comfort level. Verbalized that the provider???s preference is that the patient remove all clothing and that the provider will not examine areas patient elects to keep covered. Patient elects to keep underwear on and have the following examined: scalp, hair, face, ears, neck, chest, axillae, abdomen, back, and upper and lower extremities. Genitalia and buttocks were not examined. Assessment/Plan #. DDx: Favor BCC- 0.8 cm pearly papule on the upper back Procedure: Shave Electrodesiccation and Curettage Pre- Size: 1 cm Site: upper back Post-curettage defect size: 1.2cm Discussed indications and expectations including risks and benefits. Verbal consent obtained. Skin prep. Local anesthesia: 1% lidocaine with epinephrine. The entire lesion plus a small margin was treated by curettage and electrodesiccation x3. No complications. Wound dressed. Expectations (including discomfort management) and wound care reviewed. #. Actinic Keratosis - Ill-defined gritty papule(s) on the scalp x4 - Explained etiology, natural history and premalignant potential of these lesions. - Patient opted to proceed with liquid nitrogen. - Patient should to return to clinic for re-evaluation if lesions do not resolve within 6 weeks of this treatment. Procedure: Destruction of lesion(s) with cryotherapy. Location(s): As noted above Number: 4 Discussed procedure and expectations including risks and benefits. Verbal consent obtained. Treatedwith LN2. There were no complications. Patient tolerated the procedure well. Post-procedure expectations and wound care were reviewed. #. Epidermal inclusion cyst (EIC) - 2 cm subcutaneous nodule with overlying punctum on the central back. 3 cm subcutaneous nodule with overlying punctum on the left flank. - Benign. No treatment needed. - History of enlarging and becoming bothersome. - Counseled: Etiology and treatment options. Answered all questions. #. Favor Contact Dermatitis of Axilla-Erythematous patches in the BL axilla with associated itch and/or stinging Plan: -Advised if pt shave arm pits to avoid shaving and use a felix as shaving can induce abrasions inthe skin and increase risk of irritant contact dermatitis -Use of a fragrance free underarm Deoderant 1st. If this persists can consider further patch testing if conservative therapy is not improve Options for Anti-perspriant/deodorant: Vanicream Anti-perspirant/deodorant Almay Sensitive Skin fragrance free gel anti-perspirant/deodorant Certain Dri Prescription Strength Clinical Antiperspirant or Certain Dri Extra Strength. Apply thisto dry arm pits every 3 days at night If irritation with aluminum containing products consider: Vanicream Deodorant Crystal Mineral Deodorant Stick Gentle soap options: Vanicream Free & Clear brand or CeraVe brand moisturizers and soaps #. Lichen simplex chronicus-hyperkeratotic plaque with overlying scale on the right knee Lichen simplex chronicus is the result of repetitive rubbing or picking at one area of skin. This rubbing and picking alters the sensory nerve endings in the skin which can itself generate pruritus, thus perpetuating the cycle. Treating LSC requires behavioral modification, for as long as the patient is rubbing or picking, the skin will not heal. - patent offered treatment, he declines at this time Other: ??? Sun protection discussed (protective clothing and SPF30+ broad-spectrum sunscreen) RTC: 1 year for FSE (Hx of BCC) []Note routed to secretary specialist [x]Recall placed in scheduling system []Appointment scheduled at checkout Scribe attestation: Avi Aguilar CMA and Michelle Tobin have performed the documentation for this encounter in the presence of and acting as a scribe for Alex Priest MD. I performed the above scribed service and agree with the accuracy of the documentation in this encounter. Reviewed and signed by: Alex Priest MD Dermatology [facility] * Alex Priest MD - 08/23/2021 8:30 AM EDT Biopsy results consistent with BCC that was treated with ED&C at recent visit. No further intervention required. Seen and reviewed by: Alex Priest MD [facility] Sheet Metal Work Furnace Installer Department of Dermatology documented in this encounter Plan of Treatment Not on file documented as of this encounter Procedures Procedure Name Priority Date/Time Associated Diagnosis Comments SPECIMEN TO PATHOLOGY Routine 08/23/2021 9:17 AM EDT Neoplasm of uncertain behavior SURGICAL PATHOLOGY REPORT Routine 08/23/2021 8:52 AM EDT documented in this encounter Results * Specimen to Pathology (08/23/2021 9:17 AM EDT) AP Specimen 08/23/2021 9:17 AM EDT 08/23/2021 9:17 AM EDT Narrative [facility] - 08/23/2021 9:17 AM EDT Specimen requisition ordered. ??Separate Pathology report to follow Alex Priest MD PATHOLOGY/CYTOLOGY Magalis MULLER [facility] [place] [address] * Surgical Pathology Report (08/23/2021 8:52 AM EDT) Final Diagnosis [id number] ? Location: [facility] The signing pathologist has (i) examined the relevant preparation(s) for the specimen(s) and (ii) rendered or confirmed the diagnosis(es). . ?Surgical Pathology DIAGNOSIS Upper back, skin shave biopsy ED&C: - ??Basal cell carcinoma, superficial and nodular types, ?? present at the specimen edges Electronically signed by: ?Eddie Villaseñor MD Verified: ??08/25/2021 14:44 ??Dermatopatholo gist Performed at: ??-[facility] Dept. of Pathology, [place], [place] SPECIMEN(S) SUBMITTED A - Upper back, skin shave ?? ED&C (1) CLINICAL INFORMATION 0.8 cm pearly papule on the upper back; DDX: Favor BCC SPECIMEN PROCESSING A - Labeled/Fixative : Upper back, formalin. Quantity/Size: ??Single, 0.8 x 0.6 x 0.1 cm. Tissue Description: Shave of james, glistening skin. Sections/Process ing: Inked, quadrisected and entirely submitted in 1 cassette labeled A1. ??flaco 08/25/2021 2:44 PM EDT [facility] SPECIMEN FROM SKIN / Unknown 08/23/2021 8:52 AM EDT 08/23/2021 8:52 AM EDT Alex Priest MD PATHOLOGY/CYTOLOGY O RDERABLES [facility] [place] [id number] documented in this encounter Visit Diagnoses Diagnosis Neoplasm of uncertain behavior Neoplasm of uncertain behavior, site unspecified AK (actinic keratosis) Actinic keratosis EIC (epidermal inclusion cyst) Sebaceous cyst Dermatitis Contact dermatitis and other eczema, due to unspecified cause Lichen simplex chronicus Lichenification and lichen simplex chronicus documented in this encounter Care Teams Filter Tank Tender Helper Head Relationship Specialty Start Date End Date Diane Mckenzie, REINSTATEMENT CLERK PCP - General Family Medicine 12/06/16 documented as of this encounter
--- OUTSIDE RECORDS SUMMARY | 2024-11-13 00:13 | XMS_ITS | Encounter Summary ---
Author Organization [facility] [place] [address] Care Team Providers Care Convention Worker Name Role Phone Diane Mckenzie APRN Primary Care Provider [phone] Reason for Visit * Reason Onset Date Comments Pre Procedure Call 12/19/2016 Encounter Details Date Type Department Care Team (Late st Contact Info) Description 12/19/[address] [place] [address] Lynette Potter LPN Pre Procedure Call Social History Tobacco Use Types Packs/Day Years Used Date Smoking Tobacco: Never Assessed Sex and Gender Information Value Date Recorded Sex Assigned at Not on file Gender Identity Not on file Sexual Orientation Not on file documented as of this encounter Miscellaneous Notes * Telephone Encounter - Lynette Potter LPN - 12/19/2016 3:50 PM EST Pre - OP Excision Phone Call Date of Call: 12/19/16 Unable to reach Ayden Corrigan by phone to discuss pre-op procedure instructions. Message left on answering machine. Lynette Potter LPN documented in this encounter Plan of Treatment Not on file documented as of this encounter Visit Diagnoses Not on filedocumented in this encounter Care Teams Convention Worker Relationship Specialty Start Date End Date Diane Mckenzie APRN PCP - General Family Medicine 12/06/16 documented as of this encounter
--- OUTSIDE RECORDS SUMMARY | 2024-11-13 00:13 | XMS_ITS | Encounter Summary ---
Author Organization [facility] Address [facility] [address] [place] [address] Care Team Providers Care Aircraft Cylinder Mechanic Name Role Phone JonahMitzygeronimo Cameron APRN Primary Care Provider [phone] Encounter Details Date Type Department Care Team (Latest Contact Info) Description 09/22/2021 2:00 PM EDT Clinical Support Dermatology at [facility] [address] [place] [address] Micah Peguero MD [facility] [address] [place] [address] Visit for wound check Social History Tobacco Use Types Packs/Day Years Used Date Smoking Tobacco: Never Assessed Sex and Gender Information Value Date Recorded Sex Assigned at Not on file Gender Identity Not on file Sexual Orientation Not on file documented as of this encounter Progress Notes * Micah Peguero MD - 09/22/2021 2:00 PM EDT Images from the original note were not included. Dermatologic Surgery Post-Operative Wound Check Patient: Ayden Corrigan Today's Date: 09/22/2021 Date of : 1950 Chief complaint: [x] Wound check [] Suture removal History of Present Illness: Ayden Corrigan is a 71 y.o. male presents today for status post Mohs micrographic surgery for basal cell carcinoma, nodular, with surgery date 09/08/2021, repaired by rotation flap, located on the bridge of nose. Today, the patient reports contentment with the scar. Patient denies post- operative course complications and had an uneventful post-op course. Examination: Focused examination performed of the surgical site. This reveals a well-healing flap with small area of granulating tissue at the distal portion. Assessment: 1. Normal healing post-surgical site without any signs/symptoms of infection. Small area at distal portion that is continuing to heal. Plan: 1. Instructed to apply Vaseline and bandage once daily x one week. Then continue Vaseline once daily for an additional week bandage optional. 2. Follow up as needed. Note initiated by MICHAEL Lindquist CMA has performed the documentation for this encounter in the presence of and acting as a scribe for Dr. Peguero I performed the above scribed service and agree with the accuracy of the documentation in this encounter. Reviewed and signed by: Micah Peguero Dermatology [facility] documented in this encounter Plan of Treatment Not on file documented as of this encounter Visit Diagnoses Diagnosis Visit for wound check Encounter for other specified aftercare documented in this encounter Care Teams Aircraft Cylinder Mechanic Relationship Specialty Start Date End Date Diane Mckenzie APRN PCP - General Family Medicine 12/06/16 documented as of this encounter
--- OUTSIDE RECORDS SUMMARY | 2024-11-13 00:13 | XMS_ITS | Encounter Summary ---
Author Organization [facility] [place] [address] Care Team Providers Care Plater Printed Circuit Board Panels Name Role Phone Diane Mckenzie APRN Primary Care Provider Reason for Visit * Reason Onset Date Comments Appointment 12/08/2016 Encounter Details Date Type Department Care Team (Late st Contact Info) Description 12/08/2016 Telephone Dermatology at [facility] [address] [place] [phone] Louis Posada MD Appointment Social History Tobacco Use Types Packs/Day Years Used Date Smoking Tobacco: Never Assessed Sex and Gender Information Value Date Recorded Sex Assigned at Not on file Gender Identity Not on file Sexual Orientation Not on file documented as of this encounter Miscellaneous Notes * Telephone Encounter - Mariah Parker - 12/08/2016 9:51 AM EST I left a voicemail for Ayden Corrigan requesting a call back to schedule an excision of a BCC on forehead with Dr. Posada. documented in this encounter Plan of Treatment Not on file documented as of this encounter Visit Diagnoses Not on filedocumented in this encounter Care Teams Plater Printed Circuit Board Panels Relationship Specialty Start Date End Date Diane Mckenzie APRN PCP - General Family Medicine 12/06/16 documented as of this encounter
--- OUTSIDE RECORDS SUMMARY | 2024-11-13 00:13 | XMS_ITS | Encounter Summary ---
Author Organization [facility] [place] [address] Care Team Providers Care Air Tucker Name Role Phone Diane Mckenzie APRN Primary Care Provider [phone] Reason for Referral * Consultation (Routine) - Closed Specialty Diagnoses / Procedures Referred By Justine barahona Referred To Contact Dermatology Diagnoses Disorder of skin and subcutaneous tissue Personal history of other malignant neoplasm of skin Diane Mckenzie APRN [address] [facility] [address] [place] [address] [facility] Dermatology [address] [place] [address] Referral ID Status Reason Start Date Expiration Date V isits Requested Visits Authorized [id number] Closed Consult, Test & Treat PCP Updated and/or Approved 03/26/2023 03/25/2024 6 6 Encounter Details Date Type Department Care Team (Latest Contact Info) Description 03/26/2023 Transcribe Orders eDH Incoming Referrals [phone] Diane Mckenzie APRN [address] [facility] [address] [place] [address] Disorder of skin and subcutaneous tissue; Personal history of other malignant neoplasm of skin Social History Tobacco Use Types Packs/Day Years Used Date Smoking Tobacco: Never Assessed Sex and Gender Information Value Date Recorded Sex Assigned at Not on file Gender Identity Not on file Sexual Orientation Not on file documented as of this encounter Plan of Treatment Scheduled Referrals Name Type Priority Associated Diagnoses Orde r Schedule Referral to Dermatology Outpatient Referral Routine Disorder of skin and subcutaneous tissue Personal history of other malignant neoplasm of skin Ordered: 03/26/2023 documented as of this encounter Visit Diagnoses Diagnosis Disorder of skin and subcutaneous tissue Unspecified disorder of skin and subcutaneous tissue Personal history of other malignant neoplasm of skin documented in this encounter Care Teams Air Tucker Relationship Specialty Start Date End Date Diane Mckenzie, SHIRT TRIMMER PCP - General Family Medicine 12/06/16 documented as of this encounter
--- OUTSIDE RECORDS SUMMARY | 2024-11-13 00:13 | XMS_ITS | Clinical Summary ---
Author Organization [facility] Address [address] [place] [address] Care Team Providers Care Bacon Skin Lifter Name Role Phone Diane Mckenzie NP Primary Care Provider [phone] Social History Tobacco Use Types Packs/Day Years Used Date Smoking Tobacco: Never Assessed Interpersonal Safety Answer Date Record ed Physically Hurt Never 06/21/2020 Verbally Threaten Not on file 06/21/2020 Sex and Gender Information Value Date Recorded Sex Assigned at Not on file Legal Sex Male 18:16 EDT Gender Identity Not on file Sexual Orientation Not on file Plan of Treatment Health Maintenance Due Date Last Done Comments Hepatitis C Screen 1950 Fall Risk Screening 2013 RSV Immunization ( o r 60+ Years) (1 - 1-dose 75+ series) 2023 COVID-19 Vaccine ( season) 2024 Care Teams Bacon Skin Lifter Relationship Specialty Start Date End Date Diane Mckenzie NP PCP - General 02/26/19
--- OUTSIDE RECORDS SUMMARY | 2024-11-13 00:13 | XMS_ITS | Encounter Summary ---
Author Organization [facility] Address [facility] [address] [place] [address] Care Team Providers Care Continuity Editor Name Role Phone Diane Mckenzie APRN Primary Care Provider [phone] Encounter Details Date Type Department Care Team (Latest Contact Info) Description 09/08/2021 8:15 AM EDT Clinical Support Dermatology at [facility] [address] [place] [address] Micah Peguero MD [facility] [address] [place] [address] Basal cell carcinoma of dorsum of nose Social History Tobacco Use Types Packs/Day Years Used Date Smoking Tobacco: Never Assessed Sex and Gender Information Value Date Recorded Sex Assigned at Not on file Gender Identity Not on file Sexual Orientation Not on file documented as of this encounter Last Filed Vital Signs Vital Sign Reading Time Taken Comments Blood Pressure 138/90 09/08/2021 8:15 AM EDT Pulse 79 09/08/2021 8:15 AM EDT Temperature - - Respiratory Rate - - Oxygen Saturation - - Inhaled Oxygen Concentration - - Weight - - Height - - Body Mass Index - - documented in this encounter Progress Notes * Amelia Chaney LPN - 09/08/2021 8:15 AM EDT Mohs consultation and preoperative note (H&P) Patient Name: Ayden Corrigan Age: 71 y.o. Date of : 1950 Today's Date: 09/08/2021 REFERRING PROVIDER: Alex Priest MD CC: Mohs micrographic surgery for treatment of a cutaneous tumor HPI: Ayden Corrigan is a 71 y.o. male presenting for biopsy-proven Basal Cell Carcinoma,nodular location on the Bridge of Nose The dermatologic preoperative information sheet was reviewed with pertinentpositive and negative as below. DERMATOLOGIC PRE-OPERATIVE EVALUATION AND REVIEW OF SYSTEMS Had his Vaccine History of Mohs surgery-No Pacemaker/Defibrillator-No Joint replacement or other implantable devices (e.g. Cochlear implant)-No Do you take a blood thinner-No History of organ transplant-No History of artificial valve or stroke-No History of liver disease or bleeding disorder-No Do you have any medical problems that may affect your upcoming surgery-No Do you have any concerns regarding your upcoming surgery-No We ask patients to discontinue Fish oil/Multivitamin/Vit E/?? supplements and natural medicines not prescribed by a physician 1 week prior to surgery. SOCIAL HISTORY: Makes Own Decisions Yes Hearing aid or other devices: No Relevant travel history or future plans: Tobacco use (amount per day, type of tobacco.):No Do you have any physical limitations that may affect your surgery-No PAST MEDICAL HISTORY Past medical history reviewed PAST SURGICAL HISTORY Past surgical history reviewed ALLERGIES: Allergies reviewed MEDICATIONS: Medications reviewed documented in this encounter Plan of Treatment Not on file documented as of this encounter Visit Diagnoses Diagnosis Basal cell carcinoma of dorsum of nose Basal cell carcinoma of skin of other and unspecified parts of face documented in this encounter Care Teams Continuity Editor Relationship Specialty Start Date End Date Diane Mckenzie APRN PCP - General Family Medicine 12/06/16 documented as of this encounter
--- OUTSIDE RECORDS SUMMARY | 2024-11-13 00:13 | XMS_ITS | Encounter Summary ---
Author Organization [facility] Address [facility] [place] [address] Care Team Providers Care Hat And Cap Parts Cutter Hand Name Role Phone Diane Mckenzie APRN Primary Care Provider [phone] Reason for Visit * Consultation (Routine) - Closed Specialty Diagnoses / Procedures Referred By Justine barahona Referred To Contact Dermatology Diagnoses Basal cell carcinoma of nose Alex Priest MD [facility] [address] [address] Micah Peguero MD [facility] [address] [place] [address] Referral ID Status Reason Start Date Expiration Date V isits Requested Visits Authorized [id number] Closed Consult, Test & Treat 07/21/2021 07/21/2022 1 1 Encounter Details Date Type Department Care Team (Latest Contact Info) Description 09/08/2021 8:30 AM EDT Procedure visit Dermatology at [facility] [address] [place] [address] Micah Peguero MD [facility] [address] [place] [address] Neoplasm of uncertain behavior of skin; Nodular basal cell carcinoma Social History Tobacco Use Types Packs/Day Years Used Date Smoking Tobacco: Never Assessed Sex and Gender Information Value Date Recorded Sex Assigned at Not on file Gender Identity Not on file Sexual Orientation Not on file documented as of this encounter Last Filed Vital Signs Vital Sign Reading Time Taken Comments Blood Pressure 138/90 09/08/2021 8:40 AM EDT Pulse 79 09/08/2021 8:40 AM EDT Temperature - - Respiratory Rate - - Oxygen Saturation - - Inhaled Oxygen Concentration - - Weight - - Height - - Body Mass Index - - documented in this encounter Patient Instructions * Patient Instructions* Amelia Evangelista LPN - 09/08/2021 8:30 AM EDT Your staff surgeon today was Micah Peguero MD,PhD. Your wound(s) was repaired by [id number] stitches called a primary repair. You do not need to come back for suture removal because only absorbable sutures were used today. If the absorbable sutures bother your skin or do not absorb after 2 weeks, you may call us to remove them for you. Instructions are as below. Please keep this as a reference: Wound Care For wounds closed with absorbable-only stitches: ??? Gently remove your initial bandage (after 48 hours from surgery) and begin wound care as below. ??? If your initial bandage only lasts 24 hours (for example, falls off sooner), this is okay. Resume your wound care and bandaging instructions as below. ??? Change your bandage once a day (and whenever it becomes wet or soaks through). DO WOUND CARE FOR ONE WEEK. ??? For bandage changes: o Wash hands with soap and water, or use gloves that you can purchase a local pharmacy or drug store. o Clean the surgical area with cotton-tipped swabs or gauze dipped in soapy water (recommend liquidsoap in clean room temperature water). Do not scrub the area or put direct shower water pressure onto your wound. It is okay to allow soapy water to run over your wound in the shower. o If you cannot remove crusted areas, you may soak with wet gauze first for 15 to 20 minutes to help soften it. o Pat the area dry with clean gauze or cotton swabs. Do not rub. o Use a cotton swab to apply a generous layer of petroleum jelly over the incision lines and any open-wound areas. o Cover with clean nonstick gauze or other nonstick dressing, such as Telfa. This may be purchased over the counter at a drug store. Secure with paper tape or bandage. Band-aids are okay, but typically have more adhesive that can irritate the skin compared to paper tape. o Discontinue wound care after 7 days. If any portion of the incision was left open to heal on its own, continue to apply Vaseline daily until healed. o Allow the absorbable stitches to heal. If the top stitches that are absorbable are irritating your skin, you may call us to have them removed. Otherwise, they will be absorbed naturally in approximately 2 weeks. It may absorb as quickly as 4 days. o Keep in mind that if you do not want to use a bandage at all due to difficulty, allergies, irritation of skin, cost, time, or inconvenience --- you can certainly avoid bandages altogether. However,it is imperative that you continue with topical petrolatum ointment or Aquaphor (plain, fragrance-free). This may need to be applied several times daily if it gets wiped off, washed off, or dries out. Things to purchase for wound care: -Nonstick gauze -A tube or tub of petrolatum jelly (fragrance-free, no dye, not lotion) -paper tape -cotton swabs -gloves (optional) -Dial or other antibacterial liquid soap After Surgery 1. If you are a tobacco user please attempt to decrease the amount of tobacco products used following surgery for 1-2 weeks. 2. Limit alcohol intake to one drink per day for the next 3 days. 3. Do not participate in athletic activities for 5-7 days, unless you were told a different timeline during your visit. Athletic activity is a relative term, but this is considered to be anything that could potentially raise your heartrate or blood pressure. Elevating your heart rate and blood pressure increases the risk of swelling, bleeding, wound opening, and it could lead to worse scarring. Walking at a leisurely pace is fine for most people, but not if you are walking for the purpose of exercise. When in doubt, take it easy or call us. 4. Do not lift anything heavier than 10 pounds for 5-7 days postoperatively. 5. Some shuttle truck driver may need to be delayed or delegated such as vacuuming, mowing the lawn, snow shoveling, or caring for young children that need to be carried/lifted. Working any major muscle groups increases your heart rate and can increasing bleeding. 6. Avoid swimming, hot tubs, and direct water pressure for 3 weeks after surgery. You may shower, however, once your initial bandage comes off in 48 hours. 7. Avoid antibiotic ointments such as triple antibiotic creams. Stick with your wound care instructions, please. 8. Whenever possible, it is helpful to take photographs with your camera or cell phone of any problems or concerns you see with your wound. We often ask for photos when you call with questions. 9. Starting 2 months following surgery, you can begin firm massage to any areas of firm scar along your incision to soften the scar and reduce bumpiness. Do this 3 times per day, 3 minutes each time.Do not start massage before 2 months. 10. Your wound will appear almost completely healed soon after sutures are removed (about 1 week), but incisions can remain bright red for several weeks. Then the scarring and healing process continues under the skin for 6 months until to 2 years. The scar may become less red, less firm, and more subtle during this time; please note that the rate of improvement varies depending on the person. Most redness, discoloration, bumpiness resolves by 6 months, and most patients will look presentable within a few weeks after surgery. 11. Keep your follow-up appointments and make sure to continue to have your skin checked, as often as is recommended by your quartz orientator, for new skin cancers. This is once per year for most patients. 12. Your can expect your scar to be red for several weeks with gradual fading of the redness. Your scar will also be raised and lumpy until the dissolvable sutures under the skin get absorbed by yourbody which can take 3-4 months. The scar will flatten eventually. a. If you have a skin condition called rosacea, the redness can last long-term, or you can get an increased appearance of red vessels to the skin. The appearance of vessels slightly improves, but tends to respond well to laser treatments. 13. Occasionally, about 20% of the time on the face, the stitches under the skin can spit out of the incision to the surface. It can start out looking like a pimple or blemish directly on your incision. Sometimes you can feel something poking through the incision. it can look also minic a small area of infection, so please let us know before you go to another provider for antibiotics. This means that the suture may need to be trimmed or removed when you return for your wound check. This typically occurs a few weeks after surgery if it does occur. 14. To optimize your scar, and best cosmetic result, please avoid direct sunlight to your incision for the first 6 months following surgery. UV ray exposure to your incision may cause the redness to last longer, or to cause permanent darkening of your scar. You can avoid sun by covering your incision with a bandage when outdoors, wearing broad-rimmed hats, and wearing SPF 30 to 50 sunscreen (broad spectrum). 15. Any time you have skin surgery or any type of surgery, you can experience mild sensation loss (numbness) in the area of surgery. Massage starting at 8 weeks after surgery can help. 16. Swelling and bruising is common, and expected, especially if your surgery site was on the forehead, cheeks, temples, nose, or eyelids. . Sometimes it can be quite profound, where the eyelids swell shut, or getting black eyes. This is especially true if you are on blood thinners such as aspirin. Swelling and bruising will peak at about 48 hours after surgery. Bruising and swelling will gradually resolve. You can use ice packs or a bag of frozen peas for 15-20 minutes, 20 minutes off, up to3-4 times daily to areas of swelling on the face. Use caution not to put the icy item directly ontoyour incision, or directly in contact with your skin as this can damage skin. Avoid prolonged use more than 20 minutes. The best way to use ice packs is over the bandage, or using a light cloth/papertowel barrier between the ice pack and your skin. You can ice for as many days as needed until swelling has resolved. Eyelid and lip swelling is typically the last type of swelling to resolve. Antibiotics: If you were given antibiotic prescription, it is important to start them the evening of your surgery date. However, most patients do not need antibiotics after surgery. For pain: Most patients of different ages do not require pain medications. If you do feel soreness, throbbingor sharp pains, start by taking over the counter extra strength acetaminophen (up to 3000 mg in a 24 hour period). Generally, we like you to avoid NSAIDS (non-steroid anti-inflammatory drugs such as ibuprofen) for the first 48 hours after surgery as this can increase risk of bleeding. However, if acetaminophen is not helping with pain, you can alternate acetaminophen with iburpofen or other NSAID. Ice packs over your bandage without getting your bandage wet can also help with pain and swelling.Frozen peas work well as ice packs. THIS IS AN EXAMPLE OF A PAIN TREATMENT SCHEDULE: 1) You can take 500 mg acetaminophen one tablet by mouth at 6:00pm. This is over the counter. 2) You can take 400 mg of ibuprofen two hours later, at 8:00 pm, or other NSAID such as naproxen, as long as it does not interact with your other medications and your other doctors have not told you to avoid this. This is over the counter. Check to see how many milligrams (mg) each of your ibuprofen tablets are. Most of the time, ibuprofen comes in 200 mg tablets, so 400 mg would mean taking two of these tablets or capsules. 3) You can take 500 mg of acetaminophen at 10:00 pm. Keep track of your total acetaminophen in a 24hour period as your maximum should be 3000 mg total in a 24 hour period of this medication. 4) At midnight, you can take another 400 mg of ibuprofen. 5) you can continue on this schedule over the next 2 days, making sure to keep tabs of your total acetaminophen. If you are still in pain after trying the above, please call us. When to call your surgeon: ??? Fever of 100.4 degrees Fahrenheit or higher ??? Bleeding not controlled with direct firm pressure to your wound. Bleeding is most common in thefirst 48 hours. ??? Pain that is worsening and not relieved by over the counter medications such as acetaminophen (up to 3000 mg in a 24 hour period) ??? Wound reopening after stitching ??? Pus or bad odor from your wound ??? Worsening redness and warmth around your wound ??? If you think your surgery site is infected, please call us before seeking care or antibiotics from other providers ??? Please call us before seeking care in an emergency room or primary care. ??? If you do call, please leave your full name, phone number, date of , date of surgery, and medical record number if you have it. If after hours, please call the trench shovel operator or [phone] and ask for the quartz orientator on-call. If you have any non-urgent questions or concerns, please feel free to call my office or contact me through our patient portal, [email or web address], at [email or web address] How to contact us during business hours Dermatology at [facility] [address]: Mohs scheduling or Mohs follow-up appointments: [phone] documented in this encounter Progress Notes * Amelia Evangelista LPN - 09/08/2021 8:30 AM EDT Images from the original note were not included. Summary of Procedure(s): Site:Nasal Bridge Tumor Type: Basal Cell Carcinoma Stages to clear tumor: One Stage Repair: Rotation Flap Images: The patient was asked to call with any issues and is aware that I am available 11/06 should questions arise. Please note that I have reviewed the preoperative checklist from today's nursing visit including relevant social history and medications. I have reviewed the preoperative photos if available and the biopsy report. VITAL SIGNS: Vitals: 09/08/21 0840 BP: 138/90 Pulse: 79 PHYSICAL EXAMINATION: General: patient is awake, alert, oriented and in no acute distress. Skin: Focused examination of surgical site(s) performed which shows a well healed biopsy site. PHYSICIAN REVIEW OF REPORTS, RECORDS, IMAGES: 1) The accompanying pathology report(s) associated with aforementioned biopsy slide(s) were/was also reviewed. Assessment: Ayden Corrigan is a 71 y.o. male presenting for: 1. Biopsy-proven Basal cell carcinoma, nodular pattern, ?? present at the deep specimen edge ,located on the Bridg of Nose Plan: 1. Findings from the biopsy report, today's clinical exam, and other pertinent details were reviewed with patient today. All questions were answered. 2. Discussed treatment options based on the above findings. We recommended Mohs micrographic surgery for treatment of this tumor. Mohs micrographic surgery was indicated due to patient, site and/or tumor characteristics (see operative report for specific indication). 3. We discussed risks, benefits, and alternative treatment options to the Mohs micrographic surgeryprocedure and pertinent information including but not limited to the following: ?? Risks include bleeding, infection, scar, recurrence, incomplete tumor removal or inability to cure with surgery alone if the tumor features are more aggressive than the initial pathology indicates. Occasionally, additional adjuvant treatments may be recommended. Additional risks include large wound, prolonged wound and healing, pain, swelling, bruising, increased appearance of vessels or worsening erythema of baseline skin; more rarely risks include damage to underlying structures such as nerves, cartilage, or muscle which could lead to temporary or permanent loss of sensation or motor function. ?? Benefit is precise tumor removal ?? If reconstruction is performed, it is specific to the patient and defect. ?? Discussed that the shape, size, depth of the wound is often not known until the tumor is clearedand thus the reconstruction options are sometimes not known until after tumor clearance. Occasionally, referrals to other providers may be recommended for reconstruction based on patient preference and need. ?? Reviewed the pros and cons of common reconstructions used for this tumor type, size, and location, and that reconstruction may lead to change in appearance. ?? Natural history of scar was discussed, including that the scar will continue to mature for 1-2 years. Recommended avoidance of special ointments or scar creams, and avoidance of direct sun exposure to the scar for optimal recovery. ?? Reviewed that there are some aspects of cosmesis that are dependent on patient's characteristicssuch as age, skin laxity/texture factors, inflammatory skin diseases such as rosacea, prior surgery/radiation, degree of actinic damage, smoking status, strength of the patient's immune system, diligent wound care, medications, and genetics. ?? Having Mohs surgery may lead to physical limitations for optimal healing, such as restricted physical activity and heavy lifting. 4. The nature of sun-induced photo-aging and skin cancers was discussed. Recommended sun avoidance when possible, especially peak hours of sun 10 am to 2pm, protective clothing such as wide-brimmed hats and long-sleeved clothing, and the use of SPF broad-spectrum sunscreen SPF 50 or higher. 5. Signs and symptoms of skin cancer reviewed. Patient to report any new, changing, or symptomatic lesions and follow up with his or her quartz orientator or other skin provider. 6. Discussed avoiding direct sun exposure to scars for best cosmetic result. Note initiated by NATALIE Pretty LPN has performed the documentation for this encounter in the presence of and acting as a scribe for Dr. Peguero I performed the above scribed service and agree with the accuracy of the documentation in this encounter. Reviewed and signed by: Micah Peguero MD PhD Mohs Micrographic Surgery and Dermatologic Oncology Department of Dermatology * Micah Peguero MD - 09/08/2021 8:30 AM EDT Mohs micrographic Surgery Operative Report Patient name: Ayden Corrigan : 1950 Date: 09/08/2021 Staff Surgeon: Micah Peguero MD PhD Nursing/Network Diagnostic Support Specialist(s): Amelia Evangelista LPN Weights And Measures Sealer (s): Lynette Wilcox Pre-operative diagnosis: Basal Cell Carcinoma,nodular pattern Post-operative diagnosis: Basal Cell Carcinoma,nodular pattern Location/Site: Bridge of Nose Procedure: Mohs micrographic surgery Indication(s) for Mohs micrographic surgery: Anatomic location for tissue conservation Stages: 1 Preoperative size of tumor: 1.1 x 1.1 cm Stage I The nature and purpose of the procedure, associated risks, possible consequences and complications,and alternative forms of treatment were explained in detail. We reviewed the possible repairs basedon the clinical appearance of tumor but discussed that often the repair options may not be known until the tumor has dominick extirpated. Informed consent and permission to take photographs were obtained. The site was confirmed with the patient/authorized medical field representative/referring physician and/or a photograph form time of biopsy. A pre-operative time-out (procedural pause) was conducted with no unresolved discrepancies noted. Local anesthesia was obtained with 1% lidocaine with 1:100,000 epinephrine. The surgical site was prepped and draped in the usual sterile manner. With all visible gross tumor completely excised, the borders of the tumor and 2- 3 mm margins were excised as a complete layer. Hemostasis was achieved by electrocoagulation. The excised tissue was oriented and divided into 2 sections, chromacoded, and submitted for frozen sections. The patient tolerated the procedure well and without complications. On microscopic evaluation of the frozen sections, no residual tumor was identified on the deep or outer border of the sections. The final size of the defect after complete tumor removal was 1.3 x 1.3 cm, extending to level of perichondrium. Repair Report (Flap) Patient name: Ayden Corrigan Staff Surgeon: Micah Peguero MD PhD Farmhand(s): same as above therapy assistant: Dr. Ochoa Date: 09/08/2021 Clinical Diagnosis: skin and soft tissue defect status post Mohs micrographic surgery Location/Site: Bridge of Nose Indication: repair of wound with hinduism of anatomy/function Defect size to be repaired:1.2 x 1.1cm Procedure: Rotation flap repair Final flap size: 3.5 x 3.0 cm 2 Procedure Details: Due to the size and location of the defect resulting from the complete removal of the tumor, the postoperative risk of hemorrhage, infection, and the possibility of serious deformity from scarring, and in order to restore proper function and prevent loss of function, the defect was closed with an advancement flap. The nature and purpose of the procedure, associated risks, possible consequences, complications andalternative methods of treatment were explained to the patient in detail. An informed consent was obtained. Local anesthesia was obtained with a solution of 1-% lidocaine with 1:100,000 epinephrine. The surgical site was prepped and draped in the usual sterile manner. Any beveled edges of the defect were repaired with a scalpel blade. The flap was created by making incisions along Nasal Bridge. The flap and the wound edges were undermined, and hemostasis was obtained with electrocoagulation. The flap was Rotated onto the defect. The skin edges were closed using 4-0 Monocryl dermal/subcutaneous sutures and 6-0 Fast Absorbing Gut skin sutures. Final flap size: 3.5 x 3.0 cm2. Estimated blood loss: Minimal. Complications: None. Wound care: Routine. Follow up for suture removal in 14 days. The patient was discharged in good condition. Preoperative Medications: None Post-operative medications: Keflex 500 mg by mouth twice daily x 5 days Total local anesthesia with 1% lidocaine with 1:100,000 epinephrine used: 6cc Total local with 0.25% bupivacaine used: 3cc Note initiated by AMELIA EVANGELISTA LPN. Amelia Evangelista LPN has performed the documentation for this encounter in the presence of and acting as a scribe for Dr. Peguero I performed the above scribed service and agree with the accuracy of the documentation in this encounter. Reviewed and signed by: Micah Peguero MD PhD Mohs Micrographic Surgery and Dermatologic Oncology Department of Dermatology [address] [place] [address] documented in this encounter Plan of Treatment Not on file documented as of this encounter Visit Diagnoses Diagnosis Neoplasm of uncertain behavior of skin Nodular basal cell carcinoma Basal cell carcinoma of skin, site unspecified documented in this encounter Care Teams Hat And Cap Parts Cutter Hand Relationship Specialty Start Date End Date Diane Mckenzie APRN PCP - General Family Medicine 12/06/16 documented as of this encounter
--- OUTSIDE RECORDS SUMMARY | 2024-11-13 00:13 | XMS_ITS | Clinical Summary ---
Author Organization Formerly [facility] Address [facility] [place] [address] Care Team Providers Care English Drawer Name Role Phone Diane Mckenzie APRN Primary Care Provider [phone] Allergies No known active allergies Medications Medication Sig Dispensed Refills Start Date End Date Status ascorbic acid, vitamin C, (VITAMIN C) 1,000 mg Tablet Daily 10/20/2015 Active atorvastatin (LIPITOR) 20 mg Tablet Daily 05/17/2016 Active buPROPion (WELLBUTRIN XL) 300 mg Tablet Sustained Release 24 hr Take 300 mg by mouth every morning. Active cholecalciferol, Vitamin D3, (cholecalciferol, Vitamin D3,) 50 mcg (2,000 unit) Capsule Take by mouth. Active cephALEXin (Keflex) 500 mg CapsuleIndications:N eoplasm of uncertain behavior of skin 0ne Capsule twice daily by mouth for 5 days 10 capsule 09/08/2021 Active Active Problems Problem Noted Date Diagnosed Date Hyperlipidemia 05/17/2016 Presence of colostomy 05/04/2016 Sleep apnea 05/04/2016 Abnormal auditory perception 12/02/2015 Dysfunction of eustachian tube 12/02/2015 Deafness, mixed type 12/02/2015 Sensorineural hearing loss (SNHL) of both ears 0 12/02/2015 Essential hypertension 08/09/2015 Social History Tobacco Use Types Packs/Day Years Used Date Smoking Tobacco: Never Assessed Sex and Gender Information Value Date Recorded Sex Assigned at Not on file Gender Identity Not on file Sexual Orientation Not on file Last Filed Vital Signs Vital Sign Reading Time Taken Comments Blood Pressure 138/90 09/08/2021 8:40 AM EDT Pulse 79 09/08/2021 8:40 AM EDT Temperature - - Respiratory Rate - - Oxygen Saturation - - Inhaled Oxygen Concentration - - Weight - - Height - - Body Mass Index - - Plan of Treatment Health Maintenance Due Date Last Done Comments Hepatitis C Screening 1968 Tetanus/Diphtheria/Pertussis Vaccines (1 - Tdap) 04/24 Pneumoccocal Vaccine: 65+ (1 of 1 - PCV) 1998 Zoster vaccine (1 of 2) 1998 Advance Directive 2003 RSV Vaccine (1 - 1-dose 75+ series) 2023 Covid-19 Vaccine (1 - 2023- season) 2024 Influenza (Flu) vaccine (1 o f 1 - Influenza standard series) 07/20/2024 Care Teams English Drawer Relationship Specialty Start Date End Date Diane Mckenzie APRN PCP - General Family Medicine 12/06/16
--- OUTSIDE RECORDS SUMMARY | 2024-11-13 00:13 | XMS_ITS | Encounter Summary ---
Author Organization [facility] Address [address] [place] [address] Care Team Providers Care Inside Sales Assistant Name Role Phone Unknown, Provider Primary Care Provider Unava ilable Encounter Details Date Type Department Care Team (Latest Contact Info) Description 02/20/2019 10:44 EDT - 02/20/2019 23:59 EDT Hospital Encounter [address] [address] Unknown, Provider, Discharge Disposition: Home or Self Care Social History Tobacco Use Types Packs/Day Years Used Date Smoking Tobacco: Never Assessed Sex and Gender Information Value Date Recorded Sex Assigned at Not on file Legal Sex Male 18:16 EDT Gender Identity Not on file Sexual Orientation Not on file documented as of this encounter Discharge Disposition Disposition Code Departure Means Destination Home or Self [facility] documented in this encounter Plan of Treatment Not on file documented as of this encounter Visit Diagnoses Not on filedocumented in this encounter Care Teams Inside Sales Assistant Relationship Specialty Start Date End Date Unknown, Provider, PCP - General 02/20/19 02/25/19 documented as of this encounter
--- OUTSIDE RECORDS SUMMARY | 2024-11-13 00:13 | XMS_ITS | Encounter Summary ---
Author Organization [facility] [place] [address] Care Team Providers Care Heel Burnisher Name Role Phone Diane Mckenzie APRN Primary Care Provider [phone] Reason for Visit * Reason Comments Basal Cell Carcinoma Encounter Details Date Type Department Care Team (Latest Contact Info) Description 12/25/2016 4:00 PM EST Procedure visit Dermatology at [facility] [address] [place] [id number] Louis Posada MD Basal cell carcinoma, forehead Social History Tobacco Use Types Packs/Day Years Used Date Smoking Tobacco: Never Assessed Sex and Gender Information Value Date Recorded Sex Assigned at Not on file Gender Identity Not on file Sexual Orientation Not on file documented as of this encounter Last Filed Vital Signs Vital Sign Reading Time Taken Comments Blood Pressure 155/81 12/25/2016 4:18 PM EST Pulse 103 12/25/2016 4:18 PM EST Temperature - - Respiratory Rate - - Oxygen Saturation - - Inhaled Oxygen Concentration - - Weight - - Height - - Body Mass Index - - documented in this encounter Patient Instructions * Patient Instructions* Jamilah Carreon CMA - 12/25/2016 4:00 PM EST Section of Dermatology POST OPERATIVE INSTRUCTIONS Wash your hand before changing the dressing. The dressing on the site should remain in place and dry until Sunday The dressing should then be removed gently After removing the dressing, daily wound care should be performed as follows: Clean the wound with warm water and pat dry Apply either Vaseline or Aquaphor Ointment Cover the wound with a new dressing such as Telfa and Tape, or a Band-Aid Do not use peroxide or Antibiotic cream or ointment on the wound For discomfort, you may take Tylenol or other non-aspirin pain medication. You may use an ice pack for discomfort, 15 minutes on and off for the next 48 hours If bleeding should occur, pressure should be applied constantly for 15 minutes on the dressing withthe help of a towel, wash cloth, or piece of gauze. The sutures should be removed in 7 days. It is important that you avoid strenuous and/or vigorous activities, heavy lifting (More than 5-10 lbs), and bending for a period of 2 weeks If you have questions, please contact the office of Louis Posada MD during the day at [phone] Nurse: Lynette [phone] Jamilah Carreon After 5 PM and on weekends, please call the hospital number , and ask for the Box Shook Patcher in service education teacher. documented in this encounter Progress Notes * Louis Posada MD - 12/25/2016 4:00 PM EST Procedure note: Attending: Louis Posada MD Geophysical Laboratory Director: Jamilah Carreon CMA Referring MD: Louis Posada MD ? ? Y/N? Are you taking any blood thinners?? ? N Pacemaker or defibrillator?? ? N Heart valves? ? N Joints? N Antibiotics prior to procedures?? ? N If yes: Time taken?? ? Allergy to local anesthetics? ? N ? Allergy to latex?? ? N ? BP 155/81 Pulse 103 Pathology: DIAGNOSIS Skin, right medial forehead, shave biopsy: - BASAL CELL CARCINOMA, NODULAR TYPE, transected I explained the diagnosis to the patient and recommend an excision of the lesion for diagnosis and/or treatment. I explained all treatment options and risks of the procedure to the patient and obtained written consent. Potential complications include, but not limited to: scar, bleeding, infection, incomplete removal, nerve damage, and dehiscence. ? The patient was brought into room. A time out was performed. The patient was prepared and draped sterilely in the usual manner and anesthesia was administered by local infiltration. A fusiform shape was drawn around the lesion, and the margins were incised to the level of the subcutaneous fat with a number 15 blade. The tissue was removed with sharp and blunt dissection. The lateral margins of the resulting defect were undermined with sharp and blunt dissection and hemostasis was achieved with electrocautery. The deeper layers of the defect including subcutaneous fat were approximated to reduce tension on the suture line Layered wound closure was performed. The wound was cleaned, dried off,vaseline was applied and the wound covered with a pressure dressing. The patient was given detailedverbal and written instructions on post-operative care. ? In the event of a suspected infection (e.g. pus formation, fever, redness), the patient knows to call the clinic or the on-call coating and baking operator over the weekend. ??? Name of Procedure? ? Excision with intermediate layered closure Location? ?? Right medial forehead Diagnosis? ?? BCC Size (maximal) (cm)? ?? 1.0 x 0.7 cm Margins (cm)? 0.2 cm ? Size + Margins (cm)? ? 1.4 x 1.1 cm ? 1% lidocaine with epinephrine? 3.5 cc? Suture (adipose/dermis)? 5-0 Monocryl? Suture (epidermis)? 5-0 Prolene? Final wound length? 3.2 cm? Suture removal? 7 days? Pathology results will be given by phone or letter Louis Posada MD 12/26/16 9:08 AM documented in this encounter Plan of Treatment Not on file documented as of this encounter Procedures Procedure Name Priority Date/Time Associated Diagnosis Comments SURGICAL PATHOLOGY REPORT Routine 12/25/2016 4:48 PM EST SPECIMEN TO PATHOLOGY Routine 12/25/2016 4:48 PM EST Basal cell carcinoma, forehead documented in this encounter Results * Surgical Pathology Report (12/25/2016 4:48 PM EST) Final Diagnosis [id number] ?Location: [facility] The signing pathologist has (i) examined the relevant preparation(s) for the specimen(s) and (ii) rendered or confirmed the diagnosis(es). . ?Surgical Pathology DIAGNOSIS Skin, right medial forehead, excision: Residual ??basal cell carcinoma, completely excised. Scar, consistent with prior surgical procedure. Electronically signed by: ??Cirilo CARRIZALES, Loreto Yusuf Verified: ??12/26/2016 ?Dermatopatholo gist CLINICAL INFORMATION Specimen Submitted: A - Skin, 1.0 x 0.7 cm pearly pink nodule, right medial forehead, excision (1) Clinical History: 1.0 x 0.7 cm pearly pink nodule Clinical Diagnosis: Biopsy proven BCC, see previous pathology [id number] SPECIMEN PROCESSING A - ??Labeled/Fixati ve: Right medial forehead, formalin. Quantity/Size: ?Single, 2.5 x 1.2 x 0.3 cm. Tissue Description: An ellipse of centrally umbilicated, pink-james skin. Orientation: A suture cabello one ellipse tip and is now designated as 12 o ?'clock. Inking: The 12-3-6 o ' clock margin is marked black. The 6-9-12 o ??'clock margin is marked blue. Sectioning: ??The specimen is serially sectioned from 12 to 6 o ?'clock and submitted with the 12 o 'clock tip in cassette 1; the 6 o ??'clock tip in cassette 2 and the remaining cross sections sequentially submitted from 12-6 o ?? ' clock in cassettes 3- 5. Sections/Process ing: (T5) ??ejr 12/26/2016 3:37 PM EST [facility] SPECIMEN FROM SKIN / Unknown 12/25/2016 4:48 PM EST 12/25/2016 4:48 PM EST Louis Posada MD PATHOLOGY/CYTOLOGY O RDERABLES [facility] [place] [address] * Specimen to Pathology (surgical or derm) (12/25/2016 4:48 PM EST) AP Specimen 12/25/2016 4:48 PM EST 12/25/2016 6:20 PM EST Narrative [facility] - 12/25/2016 6:20 PM EST Specimen requisition ordered. ??Separate Pathology report to follow Resulting Agency Comment Spec In Lab Louis Posada MD PATHOLOGY/CYTOLOGY O RDERABLES [facility] [place] [id number] documented in this encounter Visit Diagnoses Diagnosis Basal cell carcinoma, forehead documented in this encounter Care Teams Heel Burnisher Relationship Specialty Start Date End Date Diane Mckenzie, INSURANCE FOLLOW UP REPRESENTATIVE PCP - General Family Medicine 12/06/16 documented as of this encounter
--- OUTSIDE RECORDS SUMMARY | 2024-11-13 00:13 | XMS_ITS | Encounter Summary ---
Author Organization [facility] [place] [address] Care Team Providers Care Cash Specialist Name Role Phone Mitzy Mckenziegeronimo Cameron APRN Primary Care Provider [phone] Reason for Visit * Reason Comments Skin Lesion Encounter Details Date Type Department Care Team (Late st Contact Info) Description 12/06/2016 8:15 AM EST Office Visit Dermatology at [facility] [address] [place] [address] Louis Posada MD SK (seborrheic keratosis); Neoplasm of uncertain behavior of skin Social History Tobacco Use Types Packs/Day Years Used Date Smoking Tobacco: Never Assessed Sex and Gender Information Value Date Recorded Sex Assigned at Not on file Gender Identity Not on file Sexual Orientation Not on file documented as of this encounter Progress Notes * Louis Posada MD - 12/06/2016 8:15 AM EST Images from the original note were not included. DERMATOLOGY NEW PATIENT NOTE Date of service: 12/06/2016 Ayden Corrigan : 1950 Provider: Louis Posada MD Chief Complaint Patient presents with ??? Skin Lesion SKIN HISTORY: None HPI Ayden Corrigan is a 66 y.o. year old male, new to me and to dermatology. Here today for a lesion on his forehead that he has had for more than 1 1/2 years. He states it bleeds at times and he scratches at it and will pick the scab off. He has not treated it in the past. His PCP recommended that he be evaluated for this area. He would also like a waist up exam. MEDS: Current Outpatient Prescriptions Medication Sig Dispense Refill ??? buPROPion (WELLBUTRIN XL) 300 mg Tablet Sustained Release 24 hr Take 300 mg by mouth every morning. ??? ascorbic acid, vitamin C, (VITAMIN C) 1,000 mg Tablet Daily ??? atorvastatin (LIPITOR) 20 mg Tablet Daily No current facility-administered medications for this visit. ADR: Review of patient's allergies indicates no known allergies. MEDICAL HISTORY: FAMILY HISTORY: None SOCIAL/OCCUPATIONAL HISTORY: Retired ROS General: feeling well Skin: denies other skin complaints EXAM General: NAD, pleasant, cooperative Skin: Patient was asked to disrobe to the level of their comfort. Examination of skin from the waist up was performed. This includes examination of the skin of the face, ears, neck, chest, axillae, left and right upper extremities, hands, back, and abdomen. SIGNIFICANT SKIN FINDINGS: A. Right medial forehead: 9 x 7mm pink eroded pearly papule B. Scattered: Multiple 0.4-0.6cm brown papules with waxy, stuck-on appearance. Milia-like cysts, comedone-like openings and/or fissuring on dermoscopy. Photo taken and charted with patient consent ASSESSMENT/PLAN: A. R/o BCC - Joint decision made to proceed with skin biopsy for further diagnostic information. - Patient would likely want standard excision given that Mohs is not currently available in [place] - A time-out procedure was performed. Procedure: Skin biopsy by shave technique Location: right medial forehead Discussed indications for procedure and expectations including risks and benefits. Verbal consent obtained. Skin prep with alcohol. Local anesthesia with 1% xylocaine, 1/100,000 epinephrine. A sampleof the lesion was removed by shave technique to the level of the dermis and submitted to Pathology.Hemostasis obtained (AlCl and/or electrocautery). There were no complications; the pt. tolerated the procedure well. The wound was dressed. Post-procedure expectations, wound care and activity restrictions were reviewed. B. Seborrheic Keratosis - Etiology discussed - Patient reassured lesions are benign in nature Follow up pending pathology results I am documenting this encounter acting as the scribe for and in the presence of Dr. Posada.: Mira Bartlett LPN and Amina Lake, Clinical Scribe I performed the above scribed service and agree with the accuracy of the documentation in this encounter. Louis Posada MD Production Assembly Operator of Dermatology, Department of Surgery [facility] documented in this encounter Plan of Treatment Not on file documented as of this encounter Procedures Procedure Name Priority Date/Time Associated Diagnosis Comments SPECIMEN TO PATHOLOGY (NON-OR) Routine 12/06/2016 9:42 AM EST Neoplasm of uncertain behavior of skin SURGICAL PATHOLOGY REPORT Routine 12/06/2016 9:42 AM EST documented in this encounter Results * Surgical Pathology Report (12/06/2016 9:42 AM EST) Final Diagnosis [id number] ?Location: [facility] The signing pathologist has (i) examined the relevant preparation(s) for the specimen(s) and (ii) rendered or confirmed the diagnosis(es). . ?Surgical Pathology DIAGNOSIS Skin, right medial forehead, shave biopsy: - BASAL CELL CARCINOMA, NODULAR TYPE, transected Electronically signed by: ??Samuel Freeman MD Verified: ??12/07/2016 ?Dermatopatholo gist, Bone & Soft Tissue Pathologist CLINICAL INFORMATION Specimen Submitted: A - Skin, Rigtht medial forehead, Shave biopsy, (1) Clinical History: Right medial forehead, 9 x 7 mm pink eroded pearly papule Clinical Diagnosis: Rule out BCC SPECIMEN PROCESSING A - Labeled/Fixative : Right medial forehead, formalin. Quantity/Size: Single, 0.6 x 0.5 x 0.1 cm. Tissue Description: Shave of granular james-pink skin. Sections/Process ing: Inked and trisected. (T1) ??pps 12/07/2016 12:38 PM EST [facility] SPECIMEN FROM SKIN / Unknown 12/06/2016 9:42 AM EST 12/06/2016 9:42 AM EST Louis Posada MD PATHOLOGY/CYTOLOGY O RENZO Performing Organization Address [facility] [place] [place] [address] * Specimen to Pathology (NON-OR) (12/06/2016 9:42 AM EST) AP Specimen 12/06/2016 9:42 AM EST 12/06/2016 1:07 PM EST Narrative [facility] - 12/06/2016 1:08 PM EST Specimen requisition ordered. ??Separate Pathology report to follow Resulting Agency Comment Spec In Lab Louis Posada MD PATHOLOGY/CYTOLOGY O RENZO Performing Organization Address [facility] [place] [place] [address] documented in this encounter Visit Diagnoses Diagnosis SK (seborrheic keratosis) Other seborrheic keratosis Neoplasm of uncertain behavior of skin documented in this encounter Care Teams Cash Specialist Relationship Specialty Start Date End Date Diane Mckenzie APRN PCP - General Family Medicine 12/06/16 documented as of this encounter
--- OUTSIDE RECORDS SUMMARY | 2024-11-13 00:13 | XMS_ITS | Encounter Summary ---
Author Organization [facility] Address [facility] [place] [address] Care Team Providers Care Athletic Turf Worker Name Role Phone Diane Mckenzie APRN Primary Care Provider [phone] Reason for Referral * Consultation (Routine) - Closed Specialty Diagnoses / Procedures Referred By Conternie t Referred To Contact Dermatology Diagnoses Basal cell carcinoma of nose Alex Priest MD [facility] [address] [facility] [place] [address] Micah Peguero MD [facility] DR [address]LE[place] [address] Referral ID Status Reason Start Date Expiration Date V isits Requested Visits Authorized [id number] Closed Consult, Test & Treat 07/21/2021 07/21/2022 1 1 Encounter Details Date Type Department Care Team (Late st Contact Info) Description 07/21/2021 Telephone Dermatology at [facility] [address] [place] [address] Alex Priest MD [facility] [address] [facility] [address] Social History Tobacco Use Types Packs/Day Years Used Date Smoking Tobacco: Never Assessed Sex and Gender Information Value Date Recorded Sex Assigned at Not on file Gender Identity Not on file Sexual Orientation Not on file documented as of this encounter Miscellaneous Notes * Telephone Encounter - Mira Bartlett LPN - 07/21/2021 2:51 PM EDT Referred to [facility] per Dr. Priest documented in this encounter Plan of Treatment Scheduled Referrals Name Type Priority Associated Diagnoses Order Schedule Referral to Dermatology Outpatient Referral Routine Basal cell carcinoma of nose Ordered: 07/21/2021 documented as of this encounter Visit Diagnoses Diagnosis Basal cell carcinoma of nose Basal cell carcinoma of skin of other and unspecified parts of face documented in this encounter Care Teams Athletic Turf Worker Relationship Specialty Start Date End Date Diane Mckenzie, SOUND TESTER PCP - General Family Medicine 12/06/16 documented as of this encounter
--- OUTSIDE RECORDS SUMMARY | 2024-11-13 00:13 | XMS_ITS | Encounter Summary ---
Author Organization Formerly [facility] Address [facility] [place] [address] Care Team Providers Care Draw Off Worker Name Role Phone Diane Mckenzie APRN Primary Care Provider +1- [phone] Reason for Visit * Reason Comments Skin Lesion * Consultation (Routine) - Closed Specialty Diagnoses / Procedures Referred By Conternie t Referred To Contact Dermatology Diagnoses Disorder of the skin and subcutaneous tissue, unspecified Diane Mckenzie APRN [address] [place] [address] [facility] Dermatology [address] [place] [address] Referral ID Status Reason Start Date Expiration Date V isits Requested Visits Authorized [id number] Closed Consult, Test & Treat Connection Center PCP Updated and/or Approved 07/05/2021 07/05/2022 6 6 Encounter Details Date Type Department Care Team (Late st Contact Info) Description 07/14/2021 8:00 AM EDT Office Visit Dermatology at [facility] [address] [place] [address] lAex Priest MD [facility] [address] KAR[place] [address] Abby Houston, RN Neoplasm of uncertain behavior Social History Tobacco Use Types Packs/Day Years Used Date Smoking Tobacco: Never Assessed Sex and Gender Information Value Date Recorded Sex Assigned at Not on file Gender Identity Not on file Sexual Orientation Not on file documented as of this encounter Progress Notes * Alex Priest MD - 07/14/2021 8:00 AM EDT Images from the original note were not included. DEPARTMENT OF DERMATOLOGY Medical D[facility]atology [facility] Provider: Alex Priest MD Patient's preferred name Ayden Preferred contact method for results []myDH []Letter [x]Phone: cell phone Detailed phone message OK? yes Are there any other people with whom we may discuss your care? Alisa, PAST MEDICAL HISTORY If no, type N. If yes, type date, location, treatment Melanoma no Dysplastic nevi no SCC no BCC 12/06/2016: BCC, nodular tyle, right medial forehead 07/14/2021: BCC nasal bridge AKs no UV Exposure & Protection Does not wear sunscreen, does not stay in the sun Grew up in [place], worked outside Other relevant past medical history (i.e. eczema, psoriasis, birthmarks, immunosuppression) FAMILY HISTORY If yes, details Melanoma no NMSC no Other relevant family history no SOCIAL HISTORY Occupation: Hobbies: Other: PRE-PROCEDURE SCREENING If no, type N. If yes, include details below Allergy to lidocaine, epinephrine, Dermabond, chlorhexidine, or adhesives: no Bleeding disorder or blood thinners: no Pacemaker, defibrillator, deep brain stimulator, cochlear implant: no History of Present Illness: Ayden Corrigan is a 71 y.o. year old. Patient is new and self-referred to the clinic for the following: - left side nasal tip; first noticed 3-5 months prior, will bleed with manipulation Medications: Reviewed in eD-H Allergies: Reviewed in eD-H Skin Examination: Focused skin examination of the face and nose, including areas under mask, was normal with the exception of the findings below Assessment/Plan #. Favor BCC - 1 cm pearly nodule on the bridge of nose (Figure 1). - Recommended a skin biopsy to confirm/clarify the nature of the skin lesion. After discussion of potential risks (scarring, bleeding, infection) and recurrence, patient agreed to proceed. - Patient denies known allergies to lidocaine and epinephrine. Procedure: Skin shave biopsy. Location: bridge of nose Time of procedure: 8:55am Discussed indications for procedure and expectations including risks and benefits. Verbal consent obtained. Time out performed. Skin prepped with alcohol. Local anesthesia with 1% xylocaine, 1/100,000 epinephrine. A sample of the lesion was removed by shave technique to the level of the dermis and s ubmitted to Pathology. Hemostasis obtained (AlCl and cautery). There were no complications; patienttolerated the procedure well. Wound dressed. Post- procedure expectations, wound care and activity restrictions reviewed. - Follow-up based on pathology results. Photo was taken and charted with patient's verbal consent. Figure 1: Other items to document in the assessment/plan if relevant ??? Sun protection discussed (protective clothing and SPF30+ broad-spectrum sunscreen) RTC: FRANTZ for FSE []Note routed to legal secretary []Recall has been placed in scheduling system [x]Appointment scheduled at checkout Scribe attestation: Abby Houston RN who has performed the documentation for this encounter in the presence of and acting as a scribe for Alex Priest MD. I performed the above scribed service and agree with the accuracy of the documentation in this encounter. Reviewed and signed by: Alex Priest MD Dermatology [facility] * Alex Priest MD - 07/14/2021 8:00 AM EDT Biopsy results consistent with BCC. Given location I recommend further treatment with Mohs surgery. Seen and reviewed by: Alex Priest MD [facility] Pump Press Operator Department of Dermatology documented in this encounter Plan of Treatment Not on file documented as of this encounter Procedures Procedure Name Priority Date/Time Associated Diagnosis Comments SURGICAL PATHOLOGY REPORT Routine 07/14/2021 9:19 AM EDT SPECIMEN TO PATHOLOGY Routine 07/14/2021 9:19 AM EDT Neoplasm of uncertain behavior documented in this encounter Results * Surgical Pathology Report (07/14/2021 9:19 AM EDT) Final Diagnosis [id number] ? Location: [facility] The signing pathologist has (i) examined the relevant preparation(s) for the specimen(s) and (ii) rendered or confirmed the diagnosis(es). . ?Surgical Pathology DIAGNOSIS Bridge of nose, skin shave biopsy: - ??Basal cell carcinoma, nodular pattern, ?? present at the deep specimen edge Electronically signed by: ?Luis F CARRIZALES, Yanet Verified: ??07/20/2021 15:58 ??Dermatopathol ogist Performed at: ??-[facility] [place], [place], [place] SPECIMEN(S) SUBMITTED A - bridge of nose, skin shave biopsy (1) CLINICAL INFORMATION 1 cm pearly papule; favor BCC SPECIMEN PROCESSING A - Labeled/Fixativ e: Patient demographics, formalin. Quantity/Size: ??Single, 0.5 x 0.4 x 0.2 cm. Tissue Description: Shave of a firm, glistening james skin papule. Sections/Proces sing: Inked, bisected and entirely submitted in 1 cassette labeled A1. ??flaco 07/20/2021 3:58 PM EDT [facility] SPECIMEN FROM SKIN / Unknown 07/14/2021 9:19 AM EDT 07/14/2021 9:19 AM EDT Alex rPiest MD PATHOLOGY/CYTOLOGY O RDERABLES [facility] [place] [address] * Specimen to Pathology (07/14/2021 9:19 AM EDT) AP Specimen 07/14/2021 9:19 AM EDT 07/14/2021 9:19 AM EDT Narrative [facility] - 07/14/2021 9:19 AM EDT Specimen requisition ordered. ??Separate Pathology report to follow Alex Priest MD PATHOLOGY/CYTOLOGY Magalis MULLER [facility] [place] [address] documented in this encounter Visit Diagnoses Diagnosis Neoplasm of uncertain behavior Neoplasm of uncertain behavior, site unspecified documented in this encounter Care Teams Draw Off Worker Relationship Specialty Start Date End Date Diane Mckenzie, WEIGHBRIDGE OPERATOR PCP - General Family Medicine 12/06/16 documented as of this encounter
--- NOTE | 2024-11-13 07:30 | DI.CT_ITS ---
Exam(s) CT CHEST WO EXAM: CT CHEST WO CT CHEST WO the CLINICAL HISTORY: follow lung nodule- 03/2023 last exam, LUNG NODULE, R91.1. TECHNIQUE: Imaging protocol: Axial computed tomography images were obtained and coronal and sagittal reformatted images were created and reviewed. Computer aided detection (CAD) was utilized. CONTRAST MATERIAL: Noncontrast COMPARISON: CT CT CHEST LUNG CANCER SCREEN from 03/22/2023 FINDINGS: Pulmonary parenchyma: No consolidation. No suspicious nodules. Stable 2 millimeter nodule anterior r ight upper lobe. Linear areas of scarring in the left lower lobe. Interstitial changes: None. Emphysema: Mild emphysematous changes in the upper lobes. Tracheobronchial tree: No mucous plugging. No bronchiectasis . Pleura: No effusion or pneumothorax. Heart: The heart is mildly dilated. The coronary arteries show mild calcifications. Aorta: Thoracic aorta non-dilated. Mild atherosclerotic changes. Lymph nodes: No enlarged lymph nodes. Bones: Degenerative changes are seen. No evidence of compression fracture. Upper abdomen: Unremarkable. Soft tissues: Unremarkable. IMPRESSION: Stable 2 millimeter nodule right upper lobe. No suspicious pulmonary nodules. Mild emphysematous changes. RADIATION DOSE DELIVERED: 293.61mGy.cm Total DLP 293.61mGy.cm Total DLP DATA REPOSITORY: All CT scans at this facility are submitted to the National Radiology Data Registry (NRDR) Dose Index Registry (DIR) with the [employer] (ACR). RADIATION OPTIMIZATION: All CT scans at this facility use at least one of these dose optimization te chniques: automated exposure control; mA and/or kV adjustment per patient size (includes targeted exa ms where dose is matched to clinical indication); or iterative reconstruction.
== END 2024-11-13 00:31 ==
LOC: DI 00:11
PROVIDERS: PCP Nurse Practitioner Family; Visit Provider Nurse Practitioner Family
DX: R91.1 Solitary pulmonary nodule (principal)
CPT/HCPCS: 71250

== ENCOUNTER 2024-12-03 12:37 | Outpatient (CLI) | payer MEDICARE, OTHER, SELFPAY ==
[2024-12-03 10:25] LABS: Bilirubin Negative (Negative); Blood Negative (Negative); Clarity Clear (Clear); Glucose Negative (Negative); Ketones Negative (Negative); Leukocyte Esterase Negative (Negative); Nitrite Negative (Negative); Specific Gravity 1.015 (1.005-1.025); Urobilinogen 0.2 mg/dL (Up to 0.2); pH 5.5 (5-8)
[2024-12-03 10:38] LABS: Anion Gap 8.1 mmol/L (3-11); BUN 19 mg/dL (7-18); CO2 26.9 mmol/L (21.0-32.0); CREATININE 1.5 mg/dL (0.70-1.30); Calcium 9.8 mg/dL (8.5-10.1); Chloride 106 mmol/L (98-107); Estimated GFR 47.95 (mL/min/1.73m2); Glucose 104 mg/dL (74-106); Potassium 4.6 mmol/L (3.5-5.1); Sodium 141 mmol/L (136-145)
--- OUTSIDE RECORDS SUMMARY | 2024-12-03 12:44 | XMS_ITS | Encounter Summary ---
Author Organization [facility] Address [address] [facility] [place] [address] Care Team Providers Care Jewel Inspector Name Role Phone Diane Mckenzie APRN Primary Care Provider Encounter Details Date Type Department Care Team (Late st Contact Info) Description 12/08/2016 Telephone Dermatology at [facility] [address] [place] [address] Louis Posada MD Social History [...] than one excision, he verbalized understanding. Scheduling assistant corporate secretary to call him and schedule appointment. documented in this encounter Plan of Treatment Not on file documented as of this encounter Visit Diagnoses Not on filedocumented in this encounter Care Teams Jewel Inspector Relationship Specialty Start Date End Date Diane Mckenzie APRN PCP - General Family Medicine 12/06/16 documented as of this encounter
--- OUTSIDE RECORDS SUMMARY | 2024-12-03 12:44 | XMS_ITS | Encounter Summary ---
Author Organization [facility] [place] [address] Care Team Providers Care Distillery Miller Name Role Phone Diane Mckenzie APRN Primary Care Provider [phone] [phone] Reason for Visit * Reason Comments Basal Cell Carcinoma Encounter Details Date Type Department Care Team (Latest Contact Info) Description 12/25/2016 4:00 PM EST Procedure visit Dermatology at [facility] [address] [place] [id number] Louis Posada MD Basal cell carcinoma, forehead [...] Louis Posada MD during the day at [phone] Nurse: Lynette [phone] Jamilah Carreon After 5 PM and on weekends, please call the hospital number , and ask for the Field Auditor cardiology nurse practitioner. documented in this encounter Progress Notes * Louis Posada MD - 12/25/2016 4:00 PM EST Procedure note: Attending: Louis Posada MD Dope Firer: Jamilah Carreon CMA Referring MD: Louis Posada [...] to call the clinic or the on-call mold unloader over the weekend. ??? Name of Procedure? [...] Report (12/25/2016 4:48 PM EST) Final Diagnosis [id number] ?Location: [facility] The signing pathologist has (i) [...] Diagnosis: Biopsy proven BCC, see previous pathology [id number] SPECIMEN PROCESSING A - ??Labeled/Fixati ve: Right [...] ing: (T5) ??ejr 12/26/2016 3:37 PM EST [facility] SPECIMEN FROM SKIN / Unknown 12/25/2016 4:48 PM EST 12/25/2016 4:48 PM EST Louis Posada MD PATHOLOGY/CYTOLOGY O RDERABLES [facility] [place] [address] * Specimen to Pathology (surgical or derm) (12/25/2016 4:48 PM EST) AP Specimen 12/25/2016 4:48 PM EST 12/25/2016 6:20 PM EST Narrative [facility] - 12/25/2016 6:20 PM EST Specimen requisition ordered. ??Separate Pathology report to follow Resulting Agency Comment Spec In Lab Louis Posada MD PATHOLOGY/CYTOLOGY O RDERABLES [facility] [place] [id number] documented in this encounter Visit Diagnoses Diagnosis Basal cell carcinoma, forehead documented in this encounter Care Teams Distillery Miller Relationship Specialty Start Date End Date Diane Mckenzie, INFECTION PREVENTION SPECIALIST PCP - General Family Medicine 12/06/16 documented as of this encounter
--- OUTSIDE RECORDS SUMMARY | 2024-12-03 12:44 | XMS_ITS | Encounter Summary ---
Author Organization [facility] Address [address] [place] [address] Care Team Providers Care Party Plan Sales Director Name Role Phone Unknown, Provider Primary Care Provider Unava ilable Encounter Details Date Type Department Care Team (Latest Contact Info) Description 02/20/2019 10:44 EDT - 02/20/2019 23:59 EDT Hospital Encounter [address] [address] Unknown, Provider, Discharge Disposition: Home or Self [...] Code Departure Means Destination Home or Self Correction documented in this encounter Plan of Treatment Not on file documented as of this encounter Visit Diagnoses Not on filedocumented in this encounter Care Teams Party Plan Sales Director Relationship Specialty Start Date End Date Unknown, Provider, PCP - General 02/20/19 02/25/19 documented as of this encounter
--- OUTSIDE RECORDS SUMMARY | 2024-12-03 12:44 | XMS_ITS | Encounter Summary ---
Author Organization [facility] Address [facility] [address] [place] [address] Care Team Providers Care Sql Report Developer Name Role Phone JonahMitzy onofregeronimo Cameron APRN Primary Care Provider +1- [phone] Encounter Details Date Type Department Care Team (Latest Contact Info) Description 09/22/2021 2:00 PM EDT Clinical Support Dermatology at [facility] [address] [place] [address] Micah Peguero MD [facility] DR [address] [address] Visit for wound check Social History Tobacco [...] Reviewed and signed by: Micah Peguero Dermatology [facility] documented in this encounter Plan of Treatment Not on file documented as of this encounter Visit Diagnoses Diagnosis Visit for wound check Encounter for other specified aftercare documented in this encounter Care Teams Sql Report Developer Relationship Specialty Start Date End Date Diane Mckenzie APRN PCP - General Family Medicine 12/06/16 documented as of this encounter
--- OUTSIDE RECORDS SUMMARY | 2024-12-03 12:44 | XMS_ITS | Encounter Summary ---
Author Organization [facility] [place] [address] Care Team Providers Care Documentation Consultant Name Role Phone Mitzy Mckenziegeronimo Cameron APRN Primary Care Provider +1- [phone] Reason for Visit * Reason Comments Skin Lesion Encounter Details Date Type Department Care Team (Late st Contact Info) Description 12/06/2016 8:15 AM EST Office Visit Dermatology at [facility] [address] [place] [address] Louis Posada MD SK (seborrheic keratosis); Neoplasm [...] that Mohs is not currently available in [place] - A time-out procedure was performed. Procedure: [...] documentation in this encounter. Louis Posada MD Atm Manager of Dermatology, Department of Surgery [facility] documented in this encounter Plan of Treatment Not on file documented as of this encounter Procedures Procedure Name Priority Date/Time Associated Diagnosis Comments SPECIMEN TO PATHOLOGY (NON-OR) Routine 12/06/2016 9:42 AM EST Neoplasm of uncertain behavior of skin SURGICAL PATHOLOGY REPORT Routine 12/06/2016 9:42 AM EST documented in this encounter Results * Surgical Pathology Report (12/06/2016 9:42 AM EST) Final Diagnosis [id number] ?Location: [facility] The signing pathologist has (i) [...] trisected. (T1) ??pps 12/07/2016 12:38 PM EST [facility] SPECIMEN FROM SKIN / Unknown 12/06/2016 9:42 AM EST 12/06/2016 9:42 AM EST Louis Posada MD PATHOLOGY/CYTOLOGY O RENZO Performing Organization Address [facility] [place] [address] * Specimen to Pathology (NON-OR) (12/06/2016 9:42 AM EST) AP Specimen 12/06/2016 9:42 AM EST 12/06/2016 1:07 PM EST Narrative [facility] - 12/06/2016 1:08 PM EST Specimen requisition ordered. ??Separate Pathology report to follow Resulting Agency Comment Spec In Lab Louis Posada MD PATHOLOGY/CYTOLOGY O RENZO Performing Organization Address [facility] [place] [address] documented in this encounter Visit Diagnoses Diagnosis SK (seborrheic keratosis) Other seborrheic keratosis Neoplasm of uncertain behavior of skin documented in this encounter Care Teams Documentation Consultant Relationship Specialty Start Date End Date Diane Mckenzie APRN PCP - General Family Medicine 12/06/16 documented as of this encounter
--- OUTSIDE RECORDS SUMMARY | 2024-12-03 12:44 | XMS_ITS | Encounter Summary ---
Author Organization [facility] Address [facility] [place] [address] Care Team Providers Care Colorer Hides And Skins Name Role Phone Diane Mckenzie APRN Primary Care Provider +1- [phone] Reason for Visit * Reason Comments Skin Lesion * Consultation (Routine) - Closed Specialty Diagnoses / Procedures Referred By Conternie t Referred To Contact Dermatology Diagnoses Disorder of the skin and subcutaneous tissue, unspecified Diane Mckenzie APRN [address] [facility] [address] [place] [address] [facility] Dermatology [address] [place] [address] Referral ID Status Reason Start Date Expiration Date V isits Requested Visits Authorized [id number] Closed Consult, Test & Treat Connection Center PCP Updated and/or Approved 07/05/2021 07/05/2022 6 6 Encounter Details Date Type Department Care Team (Late st Contact Info) Description 07/14/2021 8:00 AM EDT Office Visit Dermatology at [facility] [address] [place] [address] Alex Priest MD [facility] DR [address]LE[address] [place] [address] Abby Houston, RN Neoplasm of uncertain behavior [...] stay in the sun Grew up in [place], worked outside Other relevant past medical history [...] RTC: FRANTZ for FSE []Note routed to corporate legal secretary []Recall has been placed in [...] and signed by: Alex Priest MD Dermatology [facility] * Alex Priest MD - 07/14/2021 8:00 AM EDT Biopsy results consistent with BCC. Given location I recommend further treatment with Mohs surgery. Seen and reviewed by: Alex Priest MD [facility] Vest Backer Department of Dermatology documented in this encounter Plan of Treatment Not on file documented as of this encounter Procedures Procedure Name Priority Date/Time Associated Diagnosis Comments SURGICAL PATHOLOGY REPORT Routine 07/14/2021 9:19 AM EDT SPECIMEN TO PATHOLOGY Routine 07/14/2021 9:19 AM EDT Neoplasm of uncertain behavior documented in this encounter Results * Surgical Pathology Report (07/14/2021 9:19 AM EDT) Final Diagnosis [id number] ? Location: [facility] The signing pathologist has (i) examined the relevant preparation(s) for the specimen(s) and (ii) rendered or confirmed the diagnosis(es). . ?Surgical Pathology DIAGNOSIS Bridge of nose, skin shave biopsy: - ??Basal cell carcinoma, nodular pattern, ?? present at the deep specimen edge Electronically signed by: ?Luis F CARRIZALES, Yanet Verified: ??07/20/2021 15:58 ??Dermatopathol ogist Performed at: ??-[facility] Dept. of Pathology, [place], [place] SPECIMEN(S) SUBMITTED A - bridge of [...] labeled A1. ??flaco 07/20/2021 3:58 PM EDT [facility] SPECIMEN FROM SKIN / Unknown 07/14/2021 9:19 AM EDT 07/14/2021 9:19 AM EDT Alex Priest MD PATHOLOGY/CYTOLOGY O RDERABLES [facility] [place] [address] * Specimen to Pathology (07/14/2021 9:19 AM EDT) AP Specimen 07/14/2021 9:19 AM EDT 07/14/2021 9:19 AM EDT Narrative [facility] - 07/14/2021 9:19 AM EDT Specimen requisition ordered. ??Separate Pathology report to follow Alex Priest MD PATHOLOGY/CYTOLOGY Magalis MULLER [facility] [place] [address] documented in this encounter Visit Diagnoses Diagnosis Neoplasm of uncertain behavior Neoplasm of uncertain behavior, site unspecified documented in this encounter Care Teams Colorer Hides And Skins Relationship Specialty Start Date End Date Diane Mckenzie, CAR CHASER PCP - General Family Medicine 12/06/16 documented as of this encounter
--- OUTSIDE RECORDS SUMMARY | 2024-12-03 12:44 | XMS_ITS | Encounter Summary ---
Author Organization [facility] Address [address] [place] [address] Care Team Providers Care Enrolled Agent Name Role Phone Unknown, Provider Primary Care Provider Unava ilable Encounter Details Date Type Department Care Team (Late st Contact Info) Description 02/20/2019 Results Only [facility] [phone] Cristobal Aranda, DO [address] [place], [place] [id number] Social History Tobacco Use Types Packs/Day Years [...] ? AYDEN CORRIGAN ? Accession #: ? [id number] ? : ? 1950 (Age: 68) ??M ? Collect Date: ? 02/20/2019 ? Location: ? [facility] ? Receive Date: ? 02/20/2019 ? Provider: CRISTOBAL ARANDA DO Copy to: EVELYN DUPREE GRIPPER ATTACHER ? Final Pathologic Diagnosis: SKIN OF FLANK, [...] history of skin cancer; fax results to [phone] Gross Description: Received in formalin labelled with [...] (ASCP) 02/21/2019 7:54 AM End of Report [facility] 02/20/2019 18:2 0 EDT 02/20/2019 18:20 EDT us Cristobal Aranda DO PATHOLOGY ORDERABLES Final Re sult [facility] [address] [place] [address] documented in this encounter Visit Diagnoses Not on filedocumented in this encounter Care Teams Enrolled Agent Relationship Specialty Start Date End Date Unknown, Provider, PCP - General 02/20/19 02/25/19 documented as of this encounter
--- OUTSIDE RECORDS SUMMARY | 2024-12-03 12:44 | XMS_ITS | Encounter Summary ---
Author Organization [facility] Address [facility] [place] [address] Care Team Providers Care Disability Hearing Officer Name Role Phone Diane Mckenzie APRN Primary Care Provider [phone] Encounter Details Date Type Department Care Team (Late st Contact Info) Description 08/23/2021 8:30 AM EDT Office Visit Dermatology at [facility] [address] [place] [address] Alex Priest MD [facility] [address] [address] Neoplasm of uncertain behavior; AK (actinic keratosis); [...] stay in the sun Grew up in [place], worked outside Other relevant past medical history [...] in any preexisting lesions. Last visit at [facility] Derm: 07/14/2021 Last visit with this [...] FSE (Hx of BCC) []Note routed to law secretary [x]Recall placed in scheduling system []Appointment scheduled at checkout Scribe attestation: Avi Aguilar CMA and Michelle Tobin have performed the documentation for this encounter in the presence of and acting as a scribe for Alex Priest MD. I performed the above scribed service and agree with the accuracy of the documentation in this encounter. Reviewed and signed by: Alex Priest MD Dermatology [facility] * Alex Priest MD - 08/23/2021 8:30 AM EDT Biopsy results consistent with BCC that was treated with ED&C at recent visit. No further intervention required. Seen and reviewed by: Alex Priest MD [facility] Registered Nurse Float Pool Department of Dermatology documented in this encounter [...] AM EDT 08/23/2021 9:17 AM EDT Narrative [facility] - 08/23/2021 9:17 AM EDT Specimen requisition ordered. ??Separate Pathology report to follow Alex Priest MD PATHOLOGY/CYTOLOGY Magalis MULLER [facility] [place] [address] * Surgical Pathology Report (08/23/2021 8:52 AM EDT) Final Diagnosis [id number] ? Location: HDM The signing pathologist has (i) examined the relevant preparation(s) for the specimen(s) and (ii) rendered or confirmed the diagnosis(es). . ?Surgical Pathology DIAGNOSIS Upper back, skin shave biopsy ED&C: - ??Basal cell carcinoma, superficial and nodular types, ?? present at the specimen edges Electronically signed by: ?Eddie Villaseñor MD Verified: ??08/25/2021 14:44 ??Dermatopatholo gist Performed at: ??-[facility] Dept. of Pathology, [place], [place] SPECIMEN(S) SUBMITTED A - Upper back, [...] labeled A1. ??flaco 08/25/2021 2:44 PM EDT [facility] SPECIMEN FROM SKIN / Unknown 08/23/2021 8:52 AM EDT 08/23/2021 8:52 AM EDT Alex Priest MD PATHOLOGY/CYTOLOGY O RDERABLES [facility] [place] [id number] documented in this encounter Visit Diagnoses Diagnosis Neoplasm of uncertain behavior Neoplasm of uncertain behavior, site unspecified AK (actinic keratosis) Actinic keratosis EIC (epidermal inclusion cyst) Sebaceous cyst Dermatitis Contact dermatitis and other eczema, due to unspecified cause Lichen simplex chronicus Lichenification and lichen simplex chronicus documented in this encounter Care Teams Disability Hearing Officer Relationship Specialty Start Date End Date Diane Mckenzie, COMPRESSOR STATION ENGINEER CHIEF PCP - General Family Medicine 12/06/16 documented as of this encounter
--- OUTSIDE RECORDS SUMMARY | 2024-12-03 12:44 | XMS_ITS | Encounter Summary ---
Author Organization [facility] [place] [address] Care Team Providers Care Airbrush Artist Photography Name Role Phone Diane Mckenzie APRN Primary Care Provider Reason for Visit * Reason Onset Date Comments Pre Procedure Call 12/19/2016 Encounter Details Date Type Department Care Team (Late st Contact Info) Description 12/19/[address] [place] [address] Lynette Potter LPN Pre Procedure Call Social [...] on filedocumented in this encounter Care Teams Airbrush Artist Photography Relationship Specialty Start Date End Date Diane Mckenzie APRN PCP - General Family Medicine 12/06/16 documented as of this encounter
--- OUTSIDE RECORDS SUMMARY | 2024-12-03 12:44 | XMS_ITS | Encounter Summary ---
Author Organization [facility] [place] [address] Care Team Providers Care Organizational Psychologist Name Role Phone Diane Mckenzie APRN Primary Care Provider [phone] Reason for Visit * Reason Onset Date Comments Appointment 12/08/2016 Encounter Details Date Type Department Care Team (Late st Contact Info) Description 12/08/2016 Telephone Dermatology at [facility] [address] [place] [address] Louis Posada MD Appointment Social History Tobacco [...] on filedocumented in this encounter Care Teams Organizational Psychologist Relationship Specialty Start Date End Date Diane Mckenzie APRN PCP - General Family Medicine 12/06/16 documented as of this encounter
--- OUTSIDE RECORDS SUMMARY | 2024-12-03 12:44 | XMS_ITS | Encounter Summary ---
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
--- OUTSIDE RECORDS SUMMARY | 2024-12-03 12:44 | XMS_ITS | Clinical Summary ---
Author Organization [facility] Address [address] [place] [address] Care Team Providers Care Instrument And Control Technician Name Role Phone Diane Mckenzie NP Primary Care Provider Social History Tobacco Use Types Packs/Day Years [...] COVID-19 Vaccine ( season) 2024 Care Teams Instrument And Control Technician Relationship Specialty Start Date End Date Diane Mckenzie NP PCP - General 02/26/19
--- OUTSIDE RECORDS SUMMARY | 2024-12-03 12:44 | XMS_ITS | Encounter Summary ---
Author Organization [facility] Address [facility] [place] [address] Care Team Providers Care Upper Stitcher Name Role Phone Diane Mckenzie APRN Primary Care Provider [phone] Reason for Visit * Consultation (Routine) - Closed Specialty Diagnoses / Procedures Referred By Justine barahona Referred To Contact Dermatology Diagnoses Basal cell carcinoma of nose Alex Priest MD [facility] [address] [address] Micah Peguero MD [facility] [address] [address] Referral ID Status Reason Start Date Expiration Date V isits Requested Visits Authorized [id number] Closed Consult, Test & Treat 07/21/2021 07/21/2022 1 1 Encounter Details Date Type Department Care Team (Latest Contact Info) Description 09/08/2021 8:30 AM EDT Procedure visit Dermatology at [facility] [address] [place] [address] Micah Peguero MD [facility] [address] [address] Neoplasm of uncertain behavior of skin; Nodular [...] Peguero MD,PhD. Your wound(s) was repaired by [id number] stitches called a primary repair. You do [...] pounds for 5-7 days postoperatively. 5. Some canvas goods supervisor may need to be delayed or delegated [...] as often as is recommended by your quantitative research analyst, for new skin cancers. This is once [...] it. If after hours, please call the well flow operator or [phone] and ask for the quantitative research analyst on-call. If you have any non-urgent questions or concerns, please feel free to call my office or contact me through our patient portal, [employer], at [email or web address] How to contact us during business hours Dermatology at [facility] [address]: Mohs scheduling or Mohs follow-up appointments: [phone] documented in this encounter Progress Notes * [...] and follow up with his or her quantitative research analyst or other skin provider. 6. Discussed avoiding [...] 09/08/2021 Staff Surgeon: Micah Peguero MD PhD Nursing/Affiliate Marketing Coordinator(s): Amelia Evangelista LPN Director Construction Services (s): Lynette Wilcox Pre-operative diagnosis: Basal Cell [...] The site was confirmed with the patient/authorized account services representative/referring physician and/or a photograph form time [...] Corrigan Staff Surgeon: Micah Peguero MD PhD Custom Tailor(s): same as above front office medical assistant: Dr. Ochoa Date: 09/08/2021 Clinical Diagnosis: skin and soft tissue defect status post Mohs micrographic surgery Location/Site: Bridge of Nose Indication: repair of wound with latter day of anatomy/function Defect size to be repaired:1.2 [...] Surgery and Dermatologic Oncology Department of Dermatology [address] [place] [address] documented in this encounter Plan of Treatment Not on file documented as of this encounter Visit Diagnoses Diagnosis Neoplasm of uncertain behavior of skin Nodular basal cell carcinoma Basal cell carcinoma of skin, site unspecified documented in this encounter Care Teams Upper Stitcher Relationship Specialty Start Date End Date Diane Mckenzie APRN PCP - General Family Medicine 12/06/16 documented as of this encounter
--- OUTSIDE RECORDS SUMMARY | 2024-12-03 12:44 | XMS_ITS | Encounter Summary ---
Author Organization [facility] Address [facility] [place] [address] Care Team Providers Care Loom Checker Name Role Phone Diane Mckenzie APRN Primary Care Provider [phone] Reason for Referral * Consultation (Routine) - Closed Specialty Diagnoses / Procedures Referred By Conternie t Referred To Contact Dermatology Diagnoses Basal cell carcinoma of nose Alex Priest MD [facility] [address] [address] Micah Peguero MD [facility] [address] [address] Referral ID Status Reason Start Date Expiration Date V isits Requested Visits Authorized [id number] Closed Consult, Test & Treat 07/21/2021 07/21/2022 1 1 Encounter Details Date Type Department Care Team (Late st Contact Info) Description 07/21/2021 Telephone Dermatology at [facility] [address] [place] [address] Alex Priest MD [facility] DR [place] [address] Social History Tobacco Use Types Packs/Day Years [...] face documented in this encounter Care Teams Loom Checker Relationship Specialty Start Date End Date Diane Mckenzie, ELECTRICIAN DECK PCP - General Family Medicine 12/06/16 documented as of this encounter
--- OUTSIDE RECORDS SUMMARY | 2024-12-03 12:44 | XMS_ITS | Encounter Summary ---
Author Organization [facility] [place] [address] Care Team Providers Care Social Welfare Administrator Name Role Phone Diane Mckenzie APRN Primary Care Provider [phone] Reason for Referral * Consultation (Routine) - Closed Specialty Diagnoses / Procedures Referred By Justine barhaona Referred To Contact Dermatology Diagnoses Disorder of skin and subcutaneous tissue Personal history of other malignant neoplasm of skin Diane Mckenzie APRN [address] [facility] [address] [place] [address] [facility] Dermatology [address] [place] [address] Referral ID Status Reason Start Date Expiration Date V isits Requested Visits Authorized [id number] Closed Consult, Test & Treat PCP Updated and/or Approved 03/26/2023 03/25/2024 6 6 Encounter Details Date Type Department Care Team (Latest Contact Info) Description 03/26/2023 Transcribe Orders eDH Incoming Referrals [phone] Diane Mckenzie APRN [address] [facility] [address] [place] [address] Disorder of skin and subcutaneous [...] skin documented in this encounter Care Teams Social Welfare Administrator Relationship Specialty Start Date End Date Diane Mckenzie, GEAR HOBBER PCP - General Family Medicine 12/06/16 documented as of this encounter
--- OUTSIDE RECORDS SUMMARY | 2024-12-03 12:44 | XMS_ITS | Referral Summary ---
Author Organization [facility] Address [address] [place] [address] Care Team Providers Care Beader Tender Name Role Phone Diane Mckenzie NP Primary Care Provider [phone] Social History Tobacco Use Types Packs/Day Years [...] of Treatment Not on file Care Teams Beader Tender Relationship Specialty Start Date End Date Diane Mckenzie NP PCP - General 02/26/19
--- OUTSIDE RECORDS SUMMARY | 2024-12-03 12:44 | XMS_ITS | Clinical Summary ---
Author Organization [facility] Address [facility] [place] [address] Care Team Providers Care Package Checker Name Role Phone Diane Mckenzie APRN Primary Care Provider [phone] Allergies No known active allergies Medications Medication [...] Vaccines (1 - Tdap) 04/24 Pneumoccocal Vaccine: 50+ (1 of 1 - PCV) 1998 Zoster vaccine (1 of 2) 1998 Advance Directive 2003 RSV Vaccine (1 - 1-dose 75+ series) 2023 Covid-19 Vaccine (1 - 2023- season) 2024 Influenza (Flu) vaccine (1 o f 1 - Influenza standard series) 07/20/2024 Care Teams Package Checker Relationship Specialty Start Date End Date Diane Mckenzie APRN PCP - General Family Medicine 12/06/16
== END 2024-12-03 12:38 | disposition home or self-care (01) ==
LOC: LBO 12:42
PROVIDERS: PCP Nurse Practitioner Family; Visit Provider Nurse Practitioner Family
DX: N18.31 Chronic kidney disease, stage 3a (principal); Z51.81 Encounter for therapeutic drug level monitoring; R82.90 Unspecified abnormal findings in urine
CPT/HCPCS: 36415; 80048; 81003

== ENCOUNTER → 2024-12-15 13:16 | Outpatient (BNVA) | payer MEDICARE, OTHER, SELFPAY | PROVIDERS: PCP Nurse Practitioner Family; Referring Provider Nurse Practitioner Family; Visit Provider Podiatrist | DX: B35.1 Tinea unguium (principal); L60.3 Nail dystrophy; N18.9 Chronic kidney disease, unspecified; L60.2 Onychogryphosis; L60.8 Other nail disorders | CPT/HCPCS: 99214 ==

== ENCOUNTER 2024-12-24 00:59 | Outpatient (CLI) | payer MEDICARE, OTHER, SELFPAY ==
--- OUTSIDE RECORDS SUMMARY | 2024-12-24 01:32 | XMS_ITS | Encounter Summary ---
Author Organization [facility] Address [facility] Maria [place] [address] Care Team Providers Care Wrapping Clerk Name Role Phone JonahMitzygeronimo Cameron APRN Primary Care Provider [phone] Encounter Details Date Type Department Care Team (Latest Contact Info) Description 09/22/2021 2:00 PM EDT Clinical Support Dermatology at [facility] [address] [place] [address] Micah Peguero MD [facility] [address] [place] [address] Visit for wound check Social History Tobacco [...] Reviewed and signed by: Micah Peguero Dermatology [facility] documented in this encounter Plan of Treatment Not on file documented as of this encounter Visit Diagnoses Diagnosis Visit for wound check Encounter for other specified aftercare documented in this encounter Care Teams Wrapping Clerk Relationship Specialty Start Date End Date Diane Mckenzie APRN PCP - General Family Medicine 12/06/16 documented as of this encounter
--- OUTSIDE RECORDS SUMMARY | 2024-12-24 01:32 | XMS_ITS | Encounter Summary ---
Author Organization [facility] Address [address] [place] [address] Care Team Providers Care Shell Sorter Name Role Phone Unknown, Provider Primary Care Provider Unava ilable Encounter Details Date Type Department Care Team (Late st Contact Info) Description 02/20/2019 Results Only [facility] [phone] Cristobal Aranda, DO [address] [place], [place] [id number] Social History Tobacco Use Types Packs/Day Years [...] ? AYDEN CORRIGAN ? Accession #: ? [id number] ? : ? 1950 (Age: 68) ??M ? Collect Date: ? 02/20/2019 ? Location: ? [facility] ? Receive Date: ? 02/20/2019 ? Provider: CRISTOBAL ARANDA DO Copy to: EVELYN DUPREE MANAGER STERILE ? Final Pathologic Diagnosis: SKIN OF FLANK, [...] history of skin cancer; fax results to [phone] Gross Description: Received in formalin labelled with [...] (ASCP) 02/21/2019 7:54 AM End of Report [facility] 02/20/2019 18:2 0 EDT 02/20/2019 18:20 EDT us Cristobal Aranda DO PATHOLOGY ORDERABLES Final Re sult [facility] [address] [place] [address] documented in this encounter Visit Diagnoses Not on filedocumented in this encounter Care Teams Shell Sorter Relationship Specialty Start Date End Date Unknown, Provider, PCP - General 02/20/19 02/25/19 documented as of this encounter
--- OUTSIDE RECORDS SUMMARY | 2024-12-24 01:32 | XMS_ITS | Encounter Summary ---
Author Organization [facility] Address [facility] [place] [address] Care Team Providers Care Branch Rental Manager Name Role Phone Diane Mckenzie APRN Primary Care Provider [phone] Reason for Visit * Reason Comments Skin Lesion * Consultation (Routine) - Closed Specialty Diagnoses / Procedures Referred By Conternie t Referred To Contact Dermatology Diagnoses Disorder of the skin and subcutaneous tissue, unspecified Diane Mckenzie APRN [address] [facility] [address] [place] [address] [facility] Dermatology [address] [place] [address] Referral ID Status Reason Start Date Expiration Date V isits Requested Visits Authorized [id number] Closed Consult, Test & Treat [facility] PCP Updated and/or Approved 07/05/2021 07/05/2022 6 6 Encounter Details Date Type Department Care Team (Late st Contact Info) Description 07/14/2021 8:00 AM EDT Office Visit Dermatology at [facility] [address] [place] [address] Alex Priest MD [facility] [address] [place] [address] Abby Houston, RN Neoplasm of uncertain behavior [...] stay in the sun Grew up in [place], worked outside Other relevant past medical history [...] RTC: FRANTZ for FSE []Note routed to medical assistant secretary []Recall has been placed in scheduling system [x]Appointment scheduled at checkout Scribe attestation: Abby Houston RN who has performed the documentation for this encounter in the presence of and acting as a scribe for Alex Priest MD. I performed the above scribed service and agree with the accuracy of the documentation in this encounter. Reviewed and signed by: Alex Priest MD Dermatology [facility] * Alex Priest MD - 07/14/2021 8:00 AM EDT Biopsy results consistent with BCC. Given location I recommend further treatment with Mohs surgery. Seen and reviewed by: Alex Priest MD [facility] Process Control Supervisor Department of Dermatology documented in this encounter Plan of Treatment Not on file documented as of this encounter Procedures Procedure Name Priority Date/Time Associated Diagnosis Comments SURGICAL PATHOLOGY REPORT Routine 07/14/2021 9:19 AM EDT SPECIMEN TO PATHOLOGY Routine 07/14/2021 9:19 AM EDT Neoplasm of uncertain behavior documented in this encounter Results * Surgical Pathology Report (07/14/2021 9:19 AM EDT) Final Diagnosis [id number] ? Location: [facility] The signing pathologist has (i) examined the relevant preparation(s) for the specimen(s) and (ii) rendered or confirmed the diagnosis(es). . ?Surgical Pathology DIAGNOSIS Bridge of nose, skin shave biopsy: - ??Basal cell carcinoma, nodular pattern, ?? present at the deep specimen edge Electronically signed by: ?Luis F CARRIZALES, Yanet Verified: ??07/20/2021 15:58 ??Dermatopathol ogist Performed at: ??[facility] [place], [place], [place] SPECIMEN(S) SUBMITTED A - bridge of [...] labeled A1. ??flaco 07/20/2021 3:58 PM EDT [facility] SPECIMEN FROM SKIN / Unknown 07/14/2021 9:19 AM EDT 07/14/2021 9:19 AM EDT Alex Priest MD PATHOLOGY/CYTOLOGY O RDERABLES [facility] [place] [address] * Specimen to Pathology (07/14/2021 9:19 AM EDT) AP Specimen 07/14/2021 9:19 AM EDT 07/14/2021 9:19 AM EDT Narrative [facility] - 07/14/2021 9:19 AM EDT Specimen requisition ordered. ??Separate Pathology report to follow Alex Priest MD PATHOLOGY/CYTOLOGY Magalis MULLER [facility] [place] [address] documented in this encounter Visit Diagnoses Diagnosis Neoplasm of uncertain behavior Neoplasm of uncertain behavior, site unspecified documented in this encounter Care Teams Branch Rental Manager Relationship Specialty Start Date End Date Diane Mckenzie, ADJUNCT INSTRUCTOR IN ECONOMICS PCP - General Family Medicine 12/06/16 documented as of this encounter
--- OUTSIDE RECORDS SUMMARY | 2024-12-24 01:32 | XMS_ITS | Encounter Summary ---
Author Organization [facility] Address [facility] [address] [place] [address] Care Team Providers Care Gasateria Attendant Name Role Phone Diane Mckenzie APRN Primary Care Provider Encounter Details Date Type Department Care Team (Latest Contact Info) Description 09/08/2021 8:15 AM EDT Clinical Support Dermatology at 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
--- OUTSIDE RECORDS SUMMARY | 2024-12-24 01:32 | XMS_ITS | Referral Summary ---
Author Organization [facility] Address [address] [place] [address] Care Team Providers Care Asset Management Lead Name Role Phone Diane Mckenzie NP Primary Care Provider [phone] Social History Tobacco Use Types Packs/Day Years [...] of Treatment Not on file Care Teams Asset Management Lead Relationship Specialty Start Date End Date Diane Mckenzie NP PCP - General 02/26/19
--- OUTSIDE RECORDS SUMMARY | 2024-12-24 01:32 | XMS_ITS | Clinical Summary ---
Author Organization [facility] Address [address] [place] [address] Care Team Providers Care Blast Furnace Checker Name Role Phone Diane Mckenzie NP Primary Care Provider [phone] Social History Tobacco Use Types Packs/Day Years [...] COVID-19 Vaccine ( season) 2024 Care Teams Blast Furnace Checker Relationship Specialty Start Date End Date Diane Mckenzie NP PCP - General 02/26/19
--- OUTSIDE RECORDS SUMMARY | 2024-12-24 01:32 | XMS_ITS | Encounter Summary ---
Author Organization [facility] Address [address] [place] [address] Care Team Providers Care Cell Tender Name Role Phone Unknown, Provider Primary Care Provider Unava ilable Encounter Details Date Type Department Care Team (Latest Contact Info) Description 02/20/2019 10:44 EDT - 02/20/2019 23:59 EDT Hospital Encounter [address] [address] Unknown, Provider, Discharge Disposition: Home or Self [...] Code Departure Means Destination Home or Self [facility] documented in this encounter Plan of Treatment Not on file documented as of this encounter Visit Diagnoses Not on filedocumented in this encounter Care Teams Cell Tender Relationship Specialty Start Date End Date Unknown, Provider, PCP - General 02/20/19 02/25/19 documented as of this encounter
--- OUTSIDE RECORDS SUMMARY | 2024-12-24 01:32 | XMS_ITS | Clinical Summary ---
Author Organization [facility] Address [facility] [place] [address] Care Team Providers Care Senior Net C Developer Name Role Phone Diane Mckenzie APRN Primary Care Provider [phone] Allergies No known active allergies Medications Medication [...] - Influenza standard series) 07/20/2024 Care Teams Senior Net C Developer Relationship Specialty Start Date End Date Diane Mckenzie APRN PCP - General Family Medicine 12/06/16
--- OUTSIDE RECORDS SUMMARY | 2024-12-24 01:32 | XMS_ITS | Encounter Summary ---
Author Organization [facility] Address One [facility] [place] [address] Care Team Providers Care Flight Superintendent Name Role Phone Diane Mckenzie APRN Primary Care Provider Encounter Details Date Type Department Care Team (Late st Contact Info) Description 12/08/2016 Telephone Dermatology at [facility] [address] [place] [address] Louis Posada MD Social History [...] than one excision, he verbalized understanding. Scheduling face hardener to call him and schedule appointment. documented in this encounter Plan of Treatment Not on file documented as of this encounter Visit Diagnoses Not on filedocumented in this encounter Care Teams Flight Superintendent Relationship Specialty Start Date End Date Diane Mckenzie APRN PCP - General Family Medicine 12/06/16 documented as of this encounter
--- OUTSIDE RECORDS SUMMARY | 2024-12-24 01:32 | XMS_ITS | Encounter Summary ---
Author Organization [facility] Address One [facility] [place] [address] Care Team Providers Care Workforce Management Consultant Name Role Phone Diane Mckenzie APRN Primary Care Provider [phone] Reason for Visit * Reason Comments Basal Cell Carcinoma Encounter Details Date Type Department Care Team (Latest Contact Info) Description 12/25/2016 4:00 PM EST Procedure visit Dermatology at [facility] [address] [place] [id number] Louis Posada MD Basal cell carcinoma, forehead [...] Louis Posada MD during the day at [phone] Nurse: Lynette [phone] Jamilah Carreon After 5 PM and on weekends, please call the hospital number , and ask for the Palliative Care Nurse corporate communications associate. documented in this encounter Progress Notes * Louis Posada MD - 12/25/2016 4:00 PM EST Procedure note: Attending: Louis Posada MD Herb Grower: Jamilah Carreon CMA Referring MD: Louis Posada [...] to call the clinic or the on-call batch and furnace operator over the weekend. ??? Name of [...] Report (12/25/2016 4:48 PM EST) Final Diagnosis [id number] ?Location: [facility] The signing pathologist has (i) [...] Diagnosis: Biopsy proven BCC, see previous pathology [id number] SPECIMEN PROCESSING A - ??Labeled/Fixati ve: Right [...] ing: (T5) ??ejr 12/26/2016 3:37 PM EST [facility] SPECIMEN FROM SKIN / Unknown 12/25/2016 4:48 PM EST 12/25/2016 4:48 PM EST Louis Posada MD PATHOLOGY/CYTOLOGY O RDERABLES [facility] [place] [address] * Specimen to Pathology (surgical or derm) (12/25/2016 4:48 PM EST) AP Specimen 12/25/2016 4:48 PM EST 12/25/2016 6:20 PM EST Narrative [facility] - 12/25/2016 6:20 PM EST Specimen requisition ordered. ??Separate Pathology report to follow Resulting Agency Comment Spec In Lab Louis Posada MD PATHOLOGY/CYTOLOGY O RDERABLES [facility] [place] [id number] documented in this encounter Visit Diagnoses Diagnosis Basal cell carcinoma, forehead documented in this encounter Care Teams Workforce Management Consultant Relationship Specialty Start Date End Date Diane Mckenzie, SCRAP DROP OPERATOR PCP - General Family Medicine 12/06/16 documented as of this encounter
--- OUTSIDE RECORDS SUMMARY | 2024-12-24 01:32 | XMS_ITS | Encounter Summary ---
Author Organization [facility] [place] [address] Care Team Providers Care Roll Up Guider Operator Name Role Phone Diane Mckenzie APRN Primary Care Provider Reason for Visit * Reason Onset Date Comments Pre Procedure Call 12/19/2016 Encounter Details Date Type Department Care Team (Late st Contact Info) Description 12/19/[address] [place] [address] Lynette Potter LPN Pre Procedure Call Social [...] on filedocumented in this encounter Care Teams Roll Up Guider Operator Relationship Specialty Start Date End Date Diane Mckenzie APRN PCP - General Family Medicine 12/06/16 documented as of this encounter
--- OUTSIDE RECORDS SUMMARY | 2024-12-24 01:32 | XMS_ITS | Encounter Summary ---
Author Organization [facility] [place] [address] Care Team Providers Care Liner Reroll Tender Name Role Phone Diane Mckenzie APRN Primary Care Provider [phone] Reason for Referral * Consultation (Routine) - Closed Specialty Diagnoses / Procedures Referred By Justine barahona Referred To Contact Dermatology Diagnoses Disorder of skin and subcutaneous tissue Personal history of other malignant neoplasm of skin Diane Mckenzie APRN [address] [facility] [address] [place] [address] [facility] Dermatology [address] [place] [address] Referral ID Status Reason Start Date Expiration Date V isits Requested Visits Authorized [id number] Closed Consult, Test & Treat PCP Updated and/or Approved 03/26/2023 03/25/2024 6 6 Encounter Details Date Type Department Care Team (Latest Contact Info) Description 03/26/2023 Transcribe Orders eDH Incoming Referrals [phone] Diane Mckenzie APRN [address] [facility] [address] [place] [address] Disorder of skin and subcutaneous [...] skin documented in this encounter Care Teams Liner Reroll Tender Relationship Specialty Start Date End Date Diane Mckenzie, INDUSTRIAL AERIAL INSTALLER PCP - General Family Medicine 12/06/16 documented as of this encounter
--- OUTSIDE RECORDS SUMMARY | 2024-12-24 01:32 | XMS_ITS | Encounter Summary ---
Author Organization [facility] Address [facility] [place] [address] Care Team Providers Care Power Chisel Operator Name Role Phone Diane Mckenzie APRN Primary Care Provider [phone] Reason for Referral * Consultation (Routine) - Closed Specialty Diagnoses / Procedures Referred By Conternie t Referred To Contact Dermatology Diagnoses Basal cell carcinoma of nose Alex Priest MD [facility] [address] [address] Micah Peguero MD [facility] [address] [address] Referral ID Status Reason Start Date Expiration Date V isits Requested Visits Authorized [id number] Closed Consult, Test & Treat 07/21/2021 07/21/2022 1 1 Encounter Details Date Type Department Care Team (Late st Contact Info) Description 07/21/2021 Telephone Dermatology at [facility] [address] [place] [address] Alex Priest MD [facility] [address] [place] [address] Social History Tobacco Use Types Packs/Day Years [...] face documented in this encounter Care Teams Power Chisel Operator Relationship Specialty Start Date End Date Diane Mckenzie, MIRROR FRAMER PCP - General Family Medicine 12/06/16 documented as of this encounter
--- OUTSIDE RECORDS SUMMARY | 2024-12-24 01:32 | XMS_ITS | Encounter Summary ---
Author Organization [facility] [place] [address] Care Team Providers Care Geriatric Social Work Professor Name Role Phone Diane Mckenzie APRN Primary Care Provider [phone] Reason for Visit * Reason Onset Date Comments Appointment 12/08/2016 Encounter Details Date Type Department Care Team (Late st Contact Info) Description 12/08/2016 Telephone Dermatology at [facility] [address] [place] [address] Louis Posada MD Appointment Social History Tobacco [...] on filedocumented in this encounter Care Teams Geriatric Social Work Professor Relationship Specialty Start Date End Date Diane Mckenzie APRN PCP - General Family Medicine 12/06/16 documented as of this encounter
--- OUTSIDE RECORDS SUMMARY | 2024-12-24 01:32 | XMS_ITS | Encounter Summary ---
Author Organization [facility] Address [facility] [place] [address] Care Team Providers Care Inspector Timers Name Role Phone Diane Mckenzie APRN Primary Care Provider [phone] Encounter Details Date Type Department Care Team (Late st Contact Info) Description 08/23/2021 8:30 AM EDT Office Visit Dermatology at [facility] [address] [place] [address] Alex Priest MD [facility] DR [address] [place] [address] Neoplasm of uncertain behavior; AK (actinic keratosis); [...] stay in the sun Grew up in [place], worked outside Other relevant past medical history [...] in any preexisting lesions. Last visit at [facility] Derm: 07/14/2021 Last visit with this [...] FSE (Hx of BCC) []Note routed to litigation legal secretary [x]Recall placed in scheduling system []Appointment scheduled at checkout Scribe attestation: Avi Aguilar CMA and Michelle Tobin have performed the documentation for this encounter in the presence of and acting as a scribe for Alex Priest MD. I performed the above scribed service and agree with the accuracy of the documentation in this encounter. Reviewed and signed by: Alex Priest MD Dermatology [facility] * Alex Priest MD - 08/23/2021 8:30 AM EDT Biopsy results consistent with BCC that was treated with ED&C at recent visit. No further intervention required. Seen and reviewed by: Alex Priest MD [facility] [employer] Department of Dermatology documented in this encounter [...] AM EDT 08/23/2021 9:17 AM EDT Narrative [facility] - 08/23/2021 9:17 AM EDT Specimen requisition ordered. ??Separate Pathology report to follow Alex Priest MD PATHOLOGY/CYTOLOGY Magalis MULLER [facility] [place] [place] [address] * Surgical Pathology Report (08/23/2021 8:52 AM EDT) Final Diagnosis [id number] ? Location: [facility] The signing pathologist has (i) examined the relevant preparation(s) for the specimen(s) and (ii) rendered or confirmed the diagnosis(es). . ?Surgical Pathology DIAGNOSIS Upper back, skin shave biopsy ED&C: - ??Basal cell carcinoma, superficial and nodular types, ?? present at the specimen edges Electronically signed by: ?Eddie Villaseñor MD Verified: ??08/25/2021 14:44 ??Dermatopatholo gist Performed at: ??-[facility] Dept. of Pathology, [place], [place] SPECIMEN(S) SUBMITTED A - Upper back, [...] labeled A1. ??flaco 08/25/2021 2:44 PM EDT [facility] SPECIMEN FROM SKIN / Unknown 08/23/2021 8:52 AM EDT 08/23/2021 8:52 AM EDT Alex Priest MD PATHOLOGY/CYTOLOGY O RDERABLES [facility] [place] [phone] documented in this encounter Visit Diagnoses Diagnosis Neoplasm of uncertain behavior Neoplasm of uncertain behavior, site unspecified AK (actinic keratosis) Actinic keratosis EIC (epidermal inclusion cyst) Sebaceous cyst Dermatitis Contact dermatitis and other eczema, due to unspecified cause Lichen simplex chronicus Lichenification and lichen simplex chronicus documented in this encounter Care Teams Inspector Timers Relationship Specialty Start Date End Date Diane Mckenzie, REPAIR ELECTRIC MOTOR ASSEMBLER PCP - General Family Medicine 12/06/16 documented as of this encounter
--- OUTSIDE RECORDS SUMMARY | 2024-12-24 01:32 | XMS_ITS | Encounter Summary ---
Author Organization [facility] Address [facility] [place] [address] Care Team Providers Care Claims Configuration Analyst Name Role Phone Diane Mckenzie APRN Primary Care Provider [phone] Reason for Visit * Consultation (Routine) - Closed Specialty Diagnoses / Procedures Referred By Justine barahona Referred To Contact Dermatology Diagnoses Basal cell carcinoma of nose Alex Priest MD [facility] [address] [address] Micah Peguero MD [facility] [address] [address] Referral ID Status Reason Start Date Expiration Date V isits Requested Visits Authorized [id number] Closed Consult, Test & Treat 07/21/2021 07/21/2022 1 1 Encounter Details Date Type Department Care Team (Latest Contact Info) Description 09/08/2021 8:30 AM EDT Procedure visit Dermatology at [facility] [address] [place] [address] Micah Peguero MD [facility] [address] [address] Neoplasm of uncertain behavior of skin; Nodular [...] Peguero MD,PhD. Your wound(s) was repaired by [id number] stitches called a primary repair. You do [...] pounds for 5-7 days postoperatively. 5. Some auto inspection specialist may need to be delayed or delegated [...] as often as is recommended by your mold swabber, for new skin cancers. This is once [...] it. If after hours, please call the drawbench operator or [phone] and ask for the mold swabber on-call. If you have any non-urgent questions or concerns, please feel free to call my office or contact me through our patient portal, [email or web address], at [email or web address] How to contact us during business hours Dermatology at [facility] Road: Mohs scheduling or Mohs follow-up appointments: [phone] documented in this encounter Progress Notes * [...] and follow up with his or her mold swabber or other skin provider. 6. Discussed avoiding [...] 09/08/2021 Staff Surgeon: Micah Peguero MD PhD Nursing/Return Agent Airport(s): Amelia Evangelista LPN Bootmaker Hand (s): Lynette Wilcox Pre-operative diagnosis: Basal Cell [...] The site was confirmed with the patient/authorized utility sales representative/referring physician and/or a photograph form time [...] [place] Staff Surgeon: Micah Peguero MD PhD Lapping Machine Tender(s): same as above refinery operator assistant: Dr. Ochoa Date: 09/08/2021 Clinical Diagnosis: skin and soft tissue defect status post Mohs micrographic surgery Location/Site: Bridge of Nose Indication: repair of wound with christian of anatomy/function Defect size to be repaired:1.2 [...] Surgery and Dermatologic Oncology Department of Dermatology [address] [place] [address] documented in this encounter Plan of Treatment Not on file documented as of this encounter Visit Diagnoses Diagnosis Neoplasm of uncertain behavior of skin Nodular basal cell carcinoma Basal cell carcinoma of skin, site unspecified documented in this encounter Care Teams Claims Configuration Analyst Relationship Specialty Start Date End Date Diane Mckenzie APRN PCP - General Family Medicine 12/06/16 documented as of this encounter
--- OUTSIDE RECORDS SUMMARY | 2024-12-24 01:33 | XMS_ITS | Encounter Summary ---
Author Organization [facility] [place] [address] Care Team Providers Care Pricing Lead Name Role Phone JonahMitzy onofregeronimo Cameron APRN Primary Care Provider [phone] Reason for Visit * Reason Comments Skin Lesion Encounter Details Date Type Department Care Team (Late st Contact Info) Description 12/06/2016 8:15 AM EST Office Visit Dermatology at [facility] [address] [place] [address] Louis Posada MD SK (seborrheic keratosis); Neoplasm [...] that Mohs is not currently available in [place] - A time-out procedure was performed. Procedure: [...] documentation in this encounter. Louis Posada MD [facility], Department of Surgery [facility] documented in this encounter Plan of Treatment Not on file documented as of this encounter Procedures Procedure Name Priority Date/Time Associated Diagnosis Comments SPECIMEN TO PATHOLOGY (NON-OR) Routine 12/06/2016 9:42 AM EST Neoplasm of uncertain behavior of skin SURGICAL PATHOLOGY REPORT Routine 12/06/2016 9:42 AM EST documented in this encounter Results * Surgical Pathology Report (12/06/2016 9:42 AM EST) Final Diagnosis [id number] ?Location: [facility] The signing pathologist has (i) [...] trisected. (T1) ??pps 12/07/2016 12:38 PM EST [facility] SPECIMEN FROM SKIN / Unknown 12/06/2016 9:42 AM EST 12/06/2016 9:42 AM EST Louis Posada MD PATHOLOGY/CYTOLOGY O [place]ZO Performing Organization Address City[facility] [place] [place] [address] * Specimen to Pathology (NON-OR) (12/06/2016 9:42 AM EST) AP Specimen 12/06/2016 9:42 AM EST 12/06/2016 1:07 PM EST Narrative [facility] - 12/06/2016 1:08 PM EST Specimen requisition ordered. ??Separate Pathology report to follow Resulting Agency Comment Spec In Lab Louis Posada MD PATHOLOGY/CYTOLOGY O [place]ZO Performing Organization Address [facility] [place] [place] [address] documented in this encounter Visit Diagnoses Diagnosis SK (seborrheic keratosis) Other seborrheic keratosis Neoplasm of uncertain behavior of skin documented in this encounter Care Teams Pricing Lead Relationship Specialty Start Date End Date Diane Mckenzie APRN PCP - General Family Medicine 12/06/16 documented as of this encounter
[2024-12-24 08:03] LABS: Anion Gap 8.8 mmol/L (3-11); BUN 17 mg/dL (7-18); CO2 26.2 mmol/L (21.0-32.0); CREATININE 1.5 mg/dL (0.70-1.30); Calcium 9.4 mg/dL (8.5-10.1); Chloride 108 mmol/L (98-107); Estimated GFR 47.95 (mL/min/1.73m2); Glucose 99 mg/dL (74-106); Potassium 4.5 mmol/L (3.5-5.1); Sodium 143 mmol/L (136-145)
== END 2024-12-24 01:00 | disposition home or self-care (01) ==
LOC: LBO 00:59
PROVIDERS: PCP Nurse Practitioner Family; Referring Provider Nurse Practitioner Family; Visit Provider Nurse Practitioner Family
DX: N18.31 Chronic kidney disease, stage 3a (principal); Z51.81 Encounter for therapeutic drug level monitoring
CPT/HCPCS: 36415; 80048

== ENCOUNTER 2025-02-26 02:25 | Outpatient (CLI) | payer MEDICARE, OTHER, SELFPAY ==
[2025-02-26 09:10] LABS: Anion Gap 10.8 mmol/L (3-11); BUN 18 mg/dL (7-18); CO2 24.2 mmol/L (21.0-32.0); CREATININE 1.5 mg/dL (0.70-1.30); Calcium 9.2 mg/dL (8.5-10.1); Chloride 105 mmol/L (98-107); Estimated GFR 47.95 (mL/min/1.73m2); Glucose 96 mg/dL (74-106); Potassium 4.4 mmol/L (3.5-5.1); Sodium 140 mmol/L (136-145)
== END 2025-02-26 02:26 | disposition home or self-care (01) ==
LOC: LBO 02:26
PROVIDERS: PCP Nurse Practitioner Family; Visit Provider Nurse Practitioner Family
DX: N18.31 Chronic kidney disease, stage 3a (principal)
CPT/HCPCS: 36415; 80048

== ENCOUNTER 2025-03-04 10:55 | Outpatient (CLI) | payer MEDICARE, OTHER, SELFPAY ==
--- NOTE | 2025-03-04 10:45 | RT.EKG_ITS ---
APPROVED REPORT Exam: Resting ECG Reason for Exam: rule out af Patient Location: O HR:75 bpm ECG Measurements Heart Rate 75 AXIS CA 132 P 40 QRSd 100 QRS -65 QT 392 T 51 QTc 438 Conclusion Sinus rhythm...normal P axis, V-rate 50- 99 Paired ventricular premature complexes...sequence of 2 V complexes Left anterior fascicular block...axis(240,-40), init forces inf Borderline T wave abnormalities...T/QRS ratio < 1/20 or flat T
== END 2025-03-04 10:56 | disposition home or self-care (01) ==
LOC: DI.KIM 10:56
PROVIDERS: PCP Nurse Practitioner Family; Visit Provider Nurse Practitioner Family
DX: I49.9 Cardiac arrhythmia, unspecified (principal); I44.4 Left anterior fascicular block; R94.31 Abnormal electrocardiogram [ECG] [EKG]; I48.91 Unspecified atrial fibrillation
CPT/HCPCS: 93010

== ENCOUNTER → 2025-03-31 08:20 | Outpatient (BNVA) | payer MEDICARE, OTHER, SELFPAY | PROVIDERS: PCP Nurse Practitioner Family; Referring Provider Nurse Practitioner Family; Visit Provider Podiatrist | DX: L60.3 Nail dystrophy (principal); B35.1 Tinea unguium | CPT/HCPCS: 99213 ==

== ENCOUNTER 2025-05-18 02:00 | Outpatient (CLI) | payer MEDICARE, OTHER, SELFPAY ==
[2025-05-18 08:14] LABS: BUN 17 mg/dL (7-18); CREATININE 1.2 mg/dL (0.70-1.30); Calcium 9.4 mg/dL (8.5-10.1); Chloride 105 mmol/L (98-107); Estimated GFR 62.29 (mL/min/1.73m2); Glucose 98 mg/dL (74-106); Potassium 4.4 mmol/L (3.5-5.1); Sodium 141 mmol/L (136-145)
== END 2025-05-18 02:01 | disposition home or self-care (01) ==
LOC: LBO 02:00
PROVIDERS: PCP Nurse Practitioner Family; Referring Provider Nurse Practitioner Family; Visit Provider Nurse Practitioner Family
DX: N18.31 Chronic kidney disease, stage 3a (principal)
CPT/HCPCS: 36415; 80048

== ENCOUNTER 2025-06-19 02:27 | Outpatient (CLI) | payer MEDICARE, OTHER, SELFPAY ==
[2025-06-19 18:22] LABS: PSA, Screening 1.0 ng/mL (<=6.5)
== END 2025-06-19 02:28 | disposition home or self-care (01) ==
LOC: LBO 02:29
PROVIDERS: PCP Nurse Practitioner Family; Visit Provider Nurse Practitioner Family
DX: Z12.5 Encounter for screening for malignant neoplasm of prostate (principal)
CPT/HCPCS: 36415; 84153

== ENCOUNTER → 2025-08-04 08:06 | Outpatient (BNVA) | payer MEDICARE, OTHER, SELFPAY | PROVIDERS: PCP Nurse Practitioner Family; Referring Provider Nurse Practitioner Family; Visit Provider Podiatrist | DX: L60.3 Nail dystrophy (principal); B35.1 Tinea unguium | CPT/HCPCS: 99213 ==

== ENCOUNTER 2025-10-01 02:12 | Outpatient (CLI) | payer MEDICARE, OTHER, SELFPAY ==
[2025-10-01 09:08] LABS: ALT 21 U/L (10-49); AST 27 U/L (<34); Albumin 4.6 g/dL (3.4-5.0); Alkaline Phosphatase 60 U/L (46-116); Anion Gap 8.3 mmol/L (3-11); BUN 17 mg/dL (9-23); Bilirubin, Total 1.00 mg/dL (0.2-1.2); CO2 25.7 mmol/L (20.0-31.0); Calcium 9.2 mg/dL (8.3-10.6); Chloride 108 mmol/L (98-107); Glucose 91 mg/dL (74-106); Potassium 4.3 mmol/L (3.5-5.1); Sodium 142 mmol/L (136-145); Total Protein 7.0 g/dL (5.7-8.2)
== END 2025-10-01 02:13 | disposition home or self-care (01) ==
LOC: LBO 02:12
PROVIDERS: PCP Nurse Practitioner Family; Referring Provider Nurse Practitioner Family; Visit Provider Nurse Practitioner Family
DX: N18.31 Chronic kidney disease, stage 3a (principal)
CPT/HCPCS: 36415; 80053